=== PATIENT | female | born 1950 | race Caucasian/White ===

== ENCOUNTER 2018-01-12 09:40 | Inpatient (IN) | payer MEDICARE, MEDICAID ==
[2018-01-12] MEDS ORDERED: 0.9 % SODIUM CHLORIDE 1000ML 1,000 ML IV SCH ×2 (10:15→12:00)
[2018-01-12] MEDS ORDERED: ACETAMINOPHEN 500 MG TABLET PO ONE (10:15)
--- NOTE | 2018-01-12 10:18 | Emergency Department Record ---
History of Present Illness - General Chief complaint: Nausea, Vomiting, Diarrhea Stated complaint: DIARRHEA/FEVER Time Seen by Provider: 01/12/18 10:14 Source: Patient Mode of Arrival: Ambulatory Limitations: No limitations - History of Present Illness Initial comments: 67 yo female presents to ED for evaluation of fever, nonproductive cough, shaking all over, and decreased urine output. Patient denies abdominal pain or urinary symptoms, patient does reports loose stools that began yesterday. Patient has been taking tylenol for her fever symptoms at home. MD complaint: Nausea, Other (Fever) Onset/Timin -: Days(s) Description of Diarrhea: Other Associated Abdominal Pain: No Improves with: None Worsens with: None Context: Anticoagulant use - Related Data Allergies Allergy/AdvReac Type Severity Reaction Status Date / Time erythromycin base Allergy Severe RASH Verified 01/12/18 10:07 codeine Allergy Intermediate ALTERED Verified 01/12/18 10:07 MENTAL STATUS levofloxacin [From Levaquin] Allergy Intermediate VOMITING Verified 01/12/18 10: 07 Sulfa (Sulfonamide Allergy Intermediate RASH Verified 01/12/18 10:07 Antibiotics) Travel Screening - Travel/Exposure Within Last 30 Days Have you traveled within the last 30 days?: No - Travel/Exposure Within Last Year Have you traveled outside the [place] in the last year?: No - Additonal Travel Details Have you been exposed to anyone with a communicable illness?: No - Travel Symptoms Symptom Screening: Fever (GT 100.4), Diarrhea Review of Systems Constitutional: Reports: Chills, Fever, Malaise, Weakness Eyes: Denies: Eye discharge, Eye pain ENT: Denies: Congestion, Ear pain, Epistaxis Respiratory: Denies: Cough, Dyspnea Cardiovascular: Denies: Chest pain, Dyspnea on exertion Endocrine: Reports: Fatigue. Denies: Heat or cold intolerance Gastrointestinal: Reports: Nausea. Denies: Abdominal pain, Constipation Genitourinary: Denies: Hematuria, Incontinence Musculoskeletal: Denies: Arthralgia, Back pain, Gout, Joint swelling Skin: Denies: Bruising, Change in color Neurological: Denies: Abnormal gait, Confusion, Headache, Seizure Psychiatric: Denies: Anxiety Hematological/Lymphatic: Reports: Easy bleeding, Easy bruising. Denies: Anemia , Blood Clots Past Medical History - SOCIAL HISTORY Smoking Status: Former smoker - RESPIRATORY Hx Respiratory Disorders: Yes Hx of CPAP: Yes - CARDIOVASCULAR Hx Cardio Disorders: Yes Hx Hypertension: Yes Comment:: high cholesterol/ carotid artery - NEURO Hx Neuro Disorders: Yes Hx TIA: Yes - GI Hx GI Disorders: Yes Hx Reflux: Yes - Hx Genitourinary Disorders: Yes Hx Bladder Problem: Yes (previous incontinence) - ENDOCRINE Hx Endocrine Disorders: Yes Hx Diabetes: Yes - MUSCULOSKELETAL Hx Musculoskeletal Disorders: Yes Hx Arthritis: Yes (spine. R knee/gout) Hx Fibromyalgia: Yes Hx Gout: Yes Comment:: 3 herniated discs in neck - PSYCH Hx Psych Problems: Yes Hx Depression: Yes - HEMATOLOGY/ONCOLOGY Hx Hematology/Oncology Disorders: Yes Hx Anemia: Yes Family Medical History Any Significant Family History?: No Family Hx Comment (NOT TO BE USED IN PLACE OF ITEMS BELOW): Father w/ cerebral hemorrhage-; siblings w/ carotid problems Hx Cancer: Grandparents Hx Diabetes: Brother/Sister Hx Heart Disease: Mother, Brother/Sister Hx Seizures: Brother/Sister Physical Exam - General General Appearance: Alert, Oriented x3, Cooperative, Moderate distress Limitations: No limitations - Head Head exam: Atraumatic, Normocephalic, Normal inspection Head exam detail: negative: Abrasion, Contusion, Vargas's sign, General tenderness, Hematoma, Laceration - Eye Eye exam: Normal appearance. negative: Conjunctival injection, Periorbital swelling, Periorbital tenderness, Scleral icterus - ENT Ear exam: negative: Auricular hematoma, Auricular trauma Nasal Exam: negative: Active bleeding, Discharge, Dried blood, Foreign body Mouth exam: negative: Drooling, Laceration, Muffled voice, Tongue elevation - Neck Neck exam: Normal inspection. negative: Meningismus, Tenderness - Respiratory Respiratory exam: Normal lung sounds bilaterally. negative: Rales, Respiratory distress, Rhonchi, Stridor - Cardiovascular Cardiovascular Exam: Normal rhythm, Normal heart sounds, Tachycardia - GI/Abdominal GI/Abdominal exam: Soft. negative: Rebound, Rigid, Tenderness - Rectal Rectal exam: Deferred - exam: Deferred - Extremities Extremities exam: Normal inspection. negative: Calf tenderness, Pedal edema, Tenderness - Back Back exam: Denies: CVA tenderness (R), CVA tenderness (L) - Neurological Neurological exam: Alert, Normal gait, Oriented X3 - Psychiatric Psychiatric exam: Normal affect, Normal mood - Skin Skin exam: Normal color. negative: Abrasion Type of lesion: negative: abrasion Course Vital Signs 01/12/18 09:54 Temperature 103.1 F H Pulse Rate 105 H Respiratory 32 H Rate Blood Pressure 154/64 Pulse Ox 96 - Reevaluation(s) Reevaluation #1: 01/12/18 11:25 Labs reviewed, WBC 15.6 CO2 19 AG 25 BUN 25 Creatinine 1.3 Lactic acid 1.7. Reevaluation #2: 01/12/18 11:52 CXR: LLL Infiltrate. Patient reassessed and updated on all results, will initiate treatment with Zithromax and rocephin IV, administer Ibuprofen for increasing fever, and admit for further evaluation. Reevaluation #3: 01/12/18 12:09 Case was discussed with Randi Combs, will accept admission at this time. Medical Decision Making - Lab Data Result diagrams: 01/12/18 10:30 01/12/18 10:30 Disposition Disposition: Admit Clinical Impression: Fever 41 degrees C or over CAP (community acquired pneumonia) Qualifiers: Laterality: left Lung location: lower lobe of lung Qualified Code(s): J18.1 - Lobar pneumonia, unspecified organism Disposition: Still a Patient at [facility] Decision to Admit: Admit from ER Decision to Admit Date: 01/12/18 Decision to Admit Time: 11:53 Condition: (2) Stable Forms: Patient Portal Access Time of Disposition: 11:53 Quality - Quality Measures Quality Measures: N/A - Blood Pressure Screening Does Patient Have Any of the Following: Active Dx of HTN Blood Pressure Classification: Hypertensive Reading Systolic Measurement: 154 Diastolic Measurement: 64 Screening for High Blood Pressure: Patient Exclusion, Hx of HTN [[id number]]
[2018-01-12 10:32] LABS: BASO % 0.1 % (0-6); EOS % 0.1 % (0-6); GRAN % 76.6 % (47-80); HEMATOCRIT 32.2 % (35.0-47.0); HEMOGLOBIN 10.5 gm/dl (11.6-16.0); LYMPH % 13.9 % (16-45); MEAN CELL VOLUME 88.5 fl (81-97); MEAN CORPUSCULAR HEMOGLOBIN 28.8 pg (27-33); MEAN CORPUSCULAR HGB CONC 32.6 g/dl (32-36); MEAN PLATELET VOLUME 11.4 fl (7.4-10.4); MONO % 9.3 % (0-9); PLATELET COUNT 241 K/uL (130-400); RED BLOOD COUNT 3.64 M/uL (3.80-5.40); RED CELL DISTRIBUTION WIDTH 14.5 % (11.5-14.5); WHITE BLOOD COUNT W/O DIFF 15.6 K/uL (4.2-12.2)
[2018-01-12 10:44] LABS: BILIRUBIN,TOTAL 0.5 mg/dL (0.2-1.0); CREATININE 1.3 mg/dL (0.5-0.9)
[2018-01-12 10:45] LABS: TOTAL PROTEIN 8.3 g/dL (6.6-8.7)
[2018-01-12 10:49] LABS: ALBUMIN 4.1 g/dL (4.0-5.0)
[2018-01-12 11:13] LABS: CRYPTOSPORIDIUM PARVUM ANTIGEN NOT DETECTED (NOT DETECT); GIARDIA LAMBLIA ANTIGEN NOT DETECTED (NOT DETECT)
[2018-01-12 11:48] LABS: MOLECULAR C DIFF TOXIN SCREEN NOT DETECTED (NOT DETECT)
[2018-01-12] MEDS ORDERED: AZITHROMYCIN 500 MG in 0.9 % SODIUM CHLORIDE 250ML 250 ML IVPB ONE (11:51)
[2018-01-12] MEDS ORDERED: CEFTRIAXONE SODIUM 1 GM in 0.9 % SODIUM CHLORIDE 100ML 100 ML IVPB ONE (11:51)
[2018-01-12] MEDS ORDERED: EUCALYPTUS OIL TP SCH (13:27)
[2018-01-12] MEDS ORDERED: MENTHOL TP SCH (13:27)
[2018-01-12] MEDS ORDERED: [UNRECOGNIZED DRUG - OTHER] TP SCH (13:27)
[2018-01-12] MEDS ORDERED: ACETAMINOPHEN 500 MG TABLET PO PRN (13:27)
[2018-01-12] MEDS ORDERED: ALBUTEROL SULFATE (0.083%) 2.5 MG/3 ML NEB INH PRN (13:27)
[2018-01-12] MEDS ORDERED: CAMPHOR TP SCH (13:27)
[2018-01-12] MEDS ORDERED: FLUTICASONE PROPIONATE 50MCG NASAL 16 GM BTL PRN (13:27)
[2018-01-12] MEDS ORDERED: CICLOPIROX TP SCH (13:27)
[2018-01-12] MEDS ORDERED: UREA TP SCH (13:27)
[2018-01-12] MEDS: 0.9 % SODIUM CHLORIDE 1000ML 1,000 ML IV PRN ×2 (13:58→22:20)
[2018-01-12] MEDS: IPRATROPIUM/ALBUTEROL (0.5MG/3MG) NEB INH SCH ×3 (14:06→22:38)
[2018-01-12] MEDS: IBUPROFEN 400 MG TABLET PO ONE ×2 (16:04→17:02)
[2018-01-12] MEDS: GLIPIZIDE 5 MG TABLET PO SCH (21:19)
[2018-01-12] MEDS: AMITRIPTYLINE 25 MG TABLET PO SCH (21:19)
[2018-01-12] MEDS ORDERED: SIMVASTATIN 10MG TABLET PO SCH (22:00)
[2018-01-12] MEDS: RANITIDINE HCL 150 MG TABLET PO SCH (22:21)
[2018-01-13] MEDS: IPRATROPIUM/ALBUTEROL (0.5MG/3MG) NEB INH SCH ×5 (05:35→21:39)
[2018-01-13] MEDS: HYDROCODONE/APAP 7.5/325MG TABLET PO PRN ×3 (05:56→23:00)
[2018-01-13] MEDS: 0.9 % SODIUM CHLORIDE 1000ML 1,000 ML IV PRN (05:58)
[2018-01-13 07:16] LABS: BASO % 0.1 % (0-6); EOS % 0.1 % (0-6); GRAN % 79.9 % (47-80); HEMATOCRIT 28.5 % (35.0-47.0); HEMOGLOBIN 9.1 gm/dl (11.6-16.0); LYMPH % 11.2 % (16-45); MEAN CELL VOLUME 90.5 fl (81-97); MEAN CORPUSCULAR HGB CONC 31.9 g/dl (32-36); MEAN PLATELET VOLUME 11.3 fl (7.4-10.4); MONO % 8.7 % (0-9); PLATELET COUNT 193 K/uL (130-400); RED BLOOD COUNT 3.15 M/uL (3.80-5.40); RED CELL DISTRIBUTION WIDTH 14.6 % (11.5-14.5); WHITE BLOOD COUNT W/O DIFF 9.1 K/uL (4.2-12.2)
[2018-01-13 07:18] LABS: MEAN CORPUSCULAR HEMOGLOBIN 28.8 pg (27-33)
[2018-01-13 07:30] LABS: BLOOD UREA NITROGEN 23 mg/dL (8-23); CREATININE 0.9 mg/dL (0.5-0.9); EST GLOMERULAR FILTRATION RATE > 60 mL/min; GLUCOSE,RANDOM 172 mg/dL (74-109)
--- NOTE | 2018-01-13 08:00 | RADIOLOGY REPORT ---
EXAM: CHEST, TWO VIEWS HISTORY: FEVER, CHILLS AND DIFFICULTY IN BREATHING FOR THREE DAYS. TECHNIQUE: Upright PA and lateral views of the chest were obtained. Comparison: Two view chest radiographic examination dated 07/09/17. FINDINGS: The heart projects at the upper limits of normal in size. No pulmonary venous hypertension is seen. There is new alveolar opacity within the infrahilar left lung localizing to the lower lobe suspicious for pneumonia. The lungs and pleural spaces are otherwise clear. There are mild degenerative changes of the visualized spine. IMPRESSION: NEW ALVEOLAR OPACITIES IN THE LEFT LOWER LOBE CONSISTENT WITH PNEUMONIA. FOLLOW -UP RADIOGRAPHIC EXAMINATIONS UNTIL COMPLETE CLEARING ARE RECOMMENDED. JOB NUMBER: [id number] MTDD
[2018-01-13] MEDS ORDERED: GLIPIZIDE 5 MG TABLET PO SCH (10:00)
[2018-01-13] MEDS: GLIPIZIDE 5 MG TABLET PO SCH ×2 (10:09→21:33)
[2018-01-13] MEDS: CLOPIDOGREL 75MG TABLET PO SCH (10:09)
[2018-01-13] MEDS: ATENOLOL 50 MG TABLET PO SCH (10:09)
[2018-01-13] MEDS: CITALOPRAM 20 MG TABLET PO SCH (10:10)
[2018-01-13] MEDS: ENOXAPARIN 40 MG/0.4 ML SYR SQ SCH (10:11)
[2018-01-13] MEDS: HYDROCHLOROTHIAZIDE 12.5 MG CAPSULE PO SCH (11:15)
[2018-01-13] MEDS: ALLOPURINOL 100 MG TAB PO SCH ×2 (11:15→21:35)
[2018-01-13] MEDS: LIDOCAINE 5% PATCH TOP SCH (11:15)
[2018-01-13] MEDS: LOSARTAN POTASSIUM 25 MG TABLET PO SCH (11:15)
[2018-01-13] MEDS: TIZANIDINE HCL 4 MG TABLET PO SCH ×2 (11:15→21:32)
--- NOTE | 2018-01-13 11:50 | History & Physical ---
History of Present Illness - Date of Service Date of Service for History & Physical: 01/13/18 - History of Present Illness Admitting Diagnosis: CAP. Fever History of Present Illness: 67 year old female presented to ED for intermittent fevers over 3 days, a nonproductive cough, loose stools, shaking, decreased urine output, nausea and increased fatigue. Patient denied abdominal pain or urinary symptoms. Patient reports treating her fever with tylenol at home. Patient has a significant past medical history including cardiovascular disease , HTN, fibromyalgia, lower lumbar disc degeneration, rheumatoid arthritis, diabetes, carotid endartorectomy, TIA, gout, GERD, incontinence, CKD stage 3, depression, anxiety, and chronic anemia. ER Course: VS: temp 103.1, HR 105, RR 32, BP 154/64, pulse ox 96% RA Labs: WBC 15.6, CO2 19, BUN 25, CR 1.3, lactic acid 1.7, blood cultures drawn Stool cultures: all results negative, including c-diff Chest x-ray: LLL pneumonia Started rocephin and zithromax. Tylenol prn fever, duoneb prn. Received 2L NS bolus, NS started at 125ml/hr PCP: Leyda Bereavement Counselor [employer] Thoracic Neurosurgeon 01/13/2018: Patient alert & oriented x 4. Patient sitting on edge of bed eating breakfast. Patient continues to have visible shaking of her hands. Patient has had intermittent fevers recorded over the past 24 hours, WBC decreased to 9.1 today, down from 15.6. Hgb 9.1 (previously 11.3, has seen GI for chronic anemia), lactic acid 2.0, up from 1.7 in ED. Blood culture results show no growth. Will continue Zithromax and rocephin, tylenol prn fever, and duoneb prn. Fluids d/c due to CKD, tolerating PO diet well. Travel Screening - Travel/Exposure Within Last 30 Days Have you traveled within the last 30 days?: No - Travel/Exposure Within Last Year Have you traveled outside the [place] in the last year?: No - Additonal Travel Details Have you been exposed to anyone with a communicable illness?: No - Travel Symptoms Symptom Screening: Fever (GT 100.4) Review of Systems Constitutional: Reports: Chills, Fever, Malaise, Weakness Eyes: Denies: Eye discharge, Eye pain ENT: Denies: Congestion, Ear pain, Epistaxis Respiratory: Reports: As per HPI, Cough. Denies: Dyspnea Cardiovascular: Reports: As per HPI. Denies: Chest pain, Dyspnea on exertion Endocrine: Reports: Fatigue. Denies: Heat or cold intolerance Gastrointestinal: Reports: Diarrhea, Nausea. Denies: Abdominal pain, Constipation Genitourinary: Denies: Hematuria, Incontinence Musculoskeletal: Reports: Back pain (chronic), Neck pain (chronic). Denies: Arthralgia, Gout, Joint swelling Skin: Reports: As per HPI. Denies: Bruising, Change in color Neurological: Denies: Abnormal gait, Confusion, Headache, Seizure Psychiatric: Reports: Anxiety, Depression Hematological/Lymphatic: Reports: Easy bleeding, Easy bruising. Denies: Anemia , Blood Clots Past Medical History - SOCIAL HISTORY Smoking Status: Former smoker Alcohol Use: None Drug Use: None - RESPIRATORY Hx Respiratory Disorders: Yes Hx of CPAP: Yes - CARDIOVASCULAR Hx Cardio Disorders: Yes Hx Hypertension: Yes Comment:: high cholesterol/ carotid artery - NEURO Hx Neuro Disorders: Yes Hx TIA: Yes - GI Hx GI Disorders: Yes Hx Reflux: Yes - Hx Genitourinary Disorders: Yes Hx Bladder Problem: Yes (previous incontinence) Comment:: Stage 3 Kidney dx - ENDOCRINE Hx Endocrine Disorders: Yes Hx Diabetes: Yes Hx Thyroid Disease: No - MUSCULOSKELETAL Hx Musculoskeletal Disorders: Yes Hx Arthritis: Yes (spine. R knee/gout) Hx Fibromyalgia: Yes Hx Gout: Yes Comment:: 3 herniated discs in neck - PSYCH Hx Psych Problems: Yes Hx Anxiety: Yes Hx Depression: Yes - HEMATOLOGY/ONCOLOGY Hx Hematology/Oncology Disorders: Yes Hx Anemia: Yes Family Medical History Any Significant Family History?: Yes Family Hx Comment (NOT TO BE USED IN PLACE OF ITEMS BELOW): Father w/ cerebral hemorrhage-; siblings w/ carotid problems Hx Cancer: Grandparents Hx Diabetes: Brother/Sister Hx Heart Disease: Mother, Brother/Sister Hx HTN: Father, Mother Hx Seizures: Brother/Sister Hx Stroke: Father H&P Meds/Allergies - Allergies Allergies: Allergies Allergy/AdvReac Type Severity Reaction Status Date / Time erythromycin base Allergy Severe RASH Verified 01/12/18 10:07 codeine Allergy Intermediate ALTERED Verified 01/12/18 10:07 MENTAL STATUS levofloxacin [From Levaquin] Allergy Intermediate VOMITING Verified 01/12/18 10: 07 Sulfa (Sulfonamide Allergy Intermediate RASH Verified 01/12/18 10:07 Antibiotics) - Active Medications Active Medications: Current Medications Acetaminophen (Tylenol 500mg Tab) 1,000 mg PO Q6H PRN PRN Reason: PAIN - MILD(1-4)/FEVER Hydrocodone Bitart/Acetaminophen (Rochelle 7.5mg/325mg) 1 each PO Q6H PRN PRN Reason: Pain - General Last Admin: 01/13/18 05:56 Dose: 1 each Albuterol Sulfate () 2.5 mg INH RESP.Q2H PRN PRN Reason: DIFFICULTY IN BREATHING Last Admin: 01/12/18 16:51 Dose: 2.5 mg Albuterol/Ipratropium (Duoneb) 3 ml INH RESP.Q4H.[facility] Last Admin: 01/13/18 09:34 Dose: 3 ml Allopurinol (Zyloprim) 100 mg PO BID [facility] Last Admin: 01/13/18 11:15 Dose: 100 mg Amitriptyline HCl (Elavil) 50 mg PO QHS [facility] Last Admin: 01/12/18 21:19 Dose: 50 mg Atenolol (Tenormin) 50 mg PO DAILY [facility] Last Admin: 01/13/18 10:09 Dose: 50 mg Citalopram Hydrobromide (Celexa) 20 mg PO DAILY [facility] Last Admin: 01/13/18 10:10 Dose: 20 mg Clopidogrel Bisulfate (Plavix) 75 mg PO DAILY [facility] Last Admin: 01/13/18 10:09 Dose: 75 mg Enoxaparin Sodium (Lovenox) 40 mg SQ DAILY [facility] Last Admin: 01/13/18 10:11 Dose: 40 mg Fluticasone Propionate (Flonase) 1 spray NA BID PRN PRN Reason: NASAL CONGESTION Glipizide (Glucotrol) 10 mg PO BID [facility] Last Admin: 01/13/18 10:09 Dose: 10 mg Hydrochlorothiazide (Hctz 12.5mg) 12.5 mg PO DAILY [facility] Last Admin: 01/13/18 11:15 Dose: 12.5 mg Azithromycin 500 mg/ Sodium (Chloride) 250 mls @ 250 mls/hr IVPB Q24H [facility] Stop: 01/18/18 13:01 CEFTRIAXONE 1GM/50ML BAG (Ceftriaxone 1 Gm-D5w Bag) 1 gm in 50 mls @ 100 mls/ hr IVPB Q24H [facility] Lidocaine (Lidoderm) 1 each TOP DAILY [facility] Last Admin: 01/13/18 11:15 Dose: 1 each Losartan Potassium (Cozaar) 25 mg PO DAILY [facility] Last Admin: 01/13/18 11:15 Dose: 25 mg Miscellaneous (Remove Patch) 1 each TD QHS [facility] Ranitidine HCl (Zantac) 300 mg PO QHS [facility] Last Admin: 01/12/18 22:21 Dose: Not Given Simvastatin (Zocor) 10 mg PO QHS [facility] Last Admin: 01/12/18 21:18 Dose: 10 mg Tizanidine HCl (Tizanidine Hcl) 4 mg PO BID [facility] Last Admin: 01/13/18 11:15 Dose: 4 mg Physical Exam - Vital Signs Vital Signs: Vital Signs - Last 24 Hrs Temp Pulse Pulse Resp BP BP Pulse Ox 01/13/18 09:36 90 20 97 01/13/18 08:00 97.2 F L 91 H 18 132/58 93 L 01/13/18 05:53 98.7 F 01/13/18 05:38 86 16 92 L 01/12/18 22:41 84 16 94 L 01/12/18 22:38 88 16 01/12/18 22:34 67 18 01/12/18 22:24 98.3 F 01/12/18 21:00 78 18 01/12/18 19:16 74 16 95 01/12/18 19:14 78 16 01/12/18 18:55 100.6 F H 01/12/18 16:52 96 H 28 H 01/12/18 16:05 20 01/12/18 16:00 103.1 F H 110 H 20 125/50 94 L 01/12/18 14:12 101 H 26 H 93 L 01/12/18 14:06 106 H 24 93 L 01/12/18 13:20 98.1 F 83 18 119/44 95 01/12/18 13:02 99.4 F 75 28 H 105/41 95 - General General Appearance: Alert, Oriented x3, Cooperative, Mild distress Limitations: No limitations - Head Head exam: Atraumatic, Normocephalic, Normal inspection Head exam detail: negative: Abrasion, Contusion, Vargas's sign, General tenderness, Hematoma, Laceration - Eye Eye exam: Normal appearance. negative: Conjunctival injection, Periorbital swelling, Periorbital tenderness, Scleral icterus - ENT ENT exam: Mucous membranes moist Ear exam: negative: Auricular hematoma, Auricular trauma Nasal Exam: Normal inspection. negative: Active bleeding, Discharge, Dried blood, Foreign body Mouth exam: Normal external inspection. negative: Drooling, Laceration, Muffled voice, Tongue elevation - Neck Neck exam: Normal inspection. negative: Meningismus, Tenderness - Respiratory Respiratory exam: Chest wall tenderness (left sided), Rales, Rhonchi. negative : Respiratory distress, Stridor - Cardiovascular Cardiovascular Exam: Regular rate, Normal rhythm, Normal heart sounds Peripheral Pulses: 2+: Radial (R), Radial (L), Dorsalis Pedis (R), Dorsalis Pedis (L) - GI/Abdominal GI/Abdominal exam: Soft. negative: Rebound, Rigid, Tenderness - Rectal Rectal exam: Deferred - exam: Deferred - Extremities Extremities exam: Normal inspection. negative: Calf tenderness, Pedal edema, Tenderness - Back Back exam: Denies: CVA tenderness (R), CVA tenderness (L) - Neurological Neurological exam: Alert, Normal gait, Oriented X3 - Psychiatric Psychiatric exam: Normal affect, Normal mood - Skin Skin exam: Normal color. negative: Abrasion Type of lesion: negative: abrasion Results - Labs Result Diagrams: 01/13/18 06:24 01/13/18 06:24 Labs Last 24 Hours: Laboratory Results - last 24 hr 01/12/18 01/12/18 01/12/18 10:15 10:30 13:30 WBC RBC Hgb Hct MCV MCH MCHC RDW Plt Count MPV Gran % Lymphocytes % Monocytes % Eosinophils % Basophils % Sodium Potassium Chloride Carbon Dioxide Anion Gap BUN Creatinine Estimated GFR POC Glucose 177 H Random Glucose Lactic Acid Calcium Urine Color Cancelled Urine Appearance Cancelled Urine pH Cancelled Ur Specific [place] Cancelled Urine Protein Cancelled Urine Glucose (UA) Cancelled Urine Clinitest Cancelled Urine Ketones Cancelled Urine Blood Cancelled Urine Nitrite Cancelled Urine Bilirubin Cancelled Urine Ictotest Cancelled Prot Sulfosalicylic Acd Cancelled Urine Urobilinogen Cancelled Ur Leukocyte Esterase Cancelled C. difficile Ag & Toxin Not detected 01/13/18 01/13/18 01/13/18 06:24 06:24 08:00 WBC 9.1 RBC 3.15 L Hgb 9.1 L Hct 28.5 L MCV 90.5 MCH 28.8 MCHC 31.9 L RDW 14.6 H Plt Count 193 MPV 11.3 H Gran % 79.9 Lymphocytes % 11.2 L Monocytes % 8.7 Eosinophils % 0.1 Basophils % 0.1 Sodium 136 Potassium 3.6 Chloride 99 Carbon Dioxide 19.0 L Anion Gap 18.0 H BUN 23 Creatinine 0.9 Estimated GFR > 60 POC Glucose 176 H Random Glucose 172 H Lactic Acid 2.0 Calcium 7.7 L Urine Color Urine Appearance Urine pH Ur Specific [place] Urine Protein Urine Glucose (UA) Urine Clinitest Urine Ketones Urine Blood Urine Nitrite Urine Bilirubin Urine Ictotest Prot Sulfosalicylic Acd Urine Urobilinogen Ur Leukocyte Esterase C. difficile Ag & Toxin VTE H&P Assessment - Risk for VTE Risk for VTE: Yes Risk Level: Moderate Risk Assessment Date: 01/12/18 Risk Assessment Time: 16:00 VTE Orders Placed or Will Be Placed: Yes Plan - Inpatient Certification Inpatient Certification: Admit to inpatient care: Based on my medical assessment, after consideration of patient's risk factors (age, co-morbidities and patient presenting symptoms and acuity), I expect that this patient will remain in the hospital greater than or equal to two midnights and that the services needed warrant inpatient care because: Patient Risk Factors: [history of DM, CVD, fever, age] Estimated length of stay: [96 hours] The patient may reasonably be expected to be discharged or transferred to a hospital within 96 hours after admission to [facility]. Services needed: [IV antibiotics, monitoring of labs, breathing treatments] Post hospital care (if known): [] I certify that my determination is in accordance with my understanding of Medicare requirements for reasonable and necessary inpatient services. 01/13/18 12:03 - Detailed Diagnosis and Plan (1) CAP (community acquired pneumonia) Current Visit: Yes Status: Acute Qualifiers: Laterality: left Lung location: lower lobe of lung Qualified Code(s): J18.1 - Lobar pneumonia, unspecified organism Base Code: J18.9 - PNEUMONIA, UNSPECIFIED ORGANISM Comment: 01/13/2018: Chest x- ray demonstrates LLL pneumonia. Patient symptomatic with malaise, fatigue, febrile, and cough. WBC 15.6 and lactic acid 1.7 on admission -Continue Rocephin and Zithromax -Duoneb prn -Tylenol prn fever -Will recheck CBC and lactic acid tomorrow (2) Fever Current Visit: Yes Status: Acute Base Code: R50.9 - FEVER, UNSPECIFIED Comment: 01/13/2018: Continues to have intermittent fevers since admission, with a high of 103. -VS q4h -Tylenol prn fever -Rocephin and Zithromax -Blood cultures obtained, no growth noted (3) DVT prophylaxis Current Visit: Yes Status: Acute Base Code: [id number] - Comment: 01/13/2018: patient at moderate risk due to age, illness, and decreased mobility -Lovenox 40mg SQ (4) Full code status Current Visit: Yes Status: Acute Base Code: Z78.9 - OTHER SPECIFIED HEALTH STATUS Comment: 01/13/2018: Patient is a full code status
[2018-01-13] MEDS: CEFTRIAXONE 1GM/50ML BAG 1 GM/50 ML BAG IVPB SCH (12:19)
[2018-01-13] MEDS ORDERED: AZITHROMYCIN 500 MG in 0.9 % SODIUM CHLORIDE 250ML 250 ML IVPB SCH (13:00)
[2018-01-13] MEDS: RANITIDINE HCL 150 MG TABLET PO SCH (21:32)
[2018-01-13] MEDS: AMITRIPTYLINE 25 MG TABLET PO SCH (21:33)
[2018-01-13] MEDS: REMOVE PATCH 1 EACH MISC TD SCH (22:18)
[2018-01-14 04:37] LABS: URINE APPEARANCE CLEAR; URINE BILIRUBIN NEGATIVE (NEGATIVE); URINE BLOOD NEGATIVE (NEGATIVE); URINE COLOR YELLOW; URINE GLUCOSE (UA) NEGATIVE (NEGATIVE); URINE KETONE NEGATIVE (NEGATIVE); URINE LEUKOCYTE ESTERASE NEGATIVE (NEGATIVE); URINE NITRITE NEGATIVE (NEGATIVE)
[2018-01-14] MEDS: IPRATROPIUM/ALBUTEROL (0.5MG/3MG) NEB INH SCH ×5 (05:17→22:42)
[2018-01-14] MEDS ORDERED: FUROSEMIDE IV 20MG/2ML VIAL IVP ONE (06:38)
[2018-01-14 07:06] LABS: BASO % 0.1 % (0-6); EOS % 0.5 % (0-6); GRAN % 78.5 % (47-80); HEMATOCRIT 27.8 % (35.0-47.0); HEMOGLOBIN 8.7 gm/dl (11.6-16.0); LYMPH % 13.7 % (16-45); MEAN CELL VOLUME 89.4 fl (81-97); MEAN CORPUSCULAR HGB CONC 31.3 g/dl (32-36); MEAN PLATELET VOLUME 11.4 fl (7.4-10.4); MONO % 7.2 % (0-9); PLATELET COUNT 216 K/uL (130-400); RED BLOOD COUNT 3.11 M/uL (3.80-5.40); RED CELL DISTRIBUTION WIDTH 14.9 % (11.5-14.5); WHITE BLOOD COUNT W/O DIFF 10.4 K/uL (4.2-12.2)
[2018-01-14 07:27] LABS: MEAN CORPUSCULAR HEMOGLOBIN 27.9 pg (27-33)
[2018-01-14 07:33] LABS: BLOOD UREA NITROGEN 25 mg/dL (8-23); CREATININE 0.9 mg/dL (0.5-0.9); EST GLOMERULAR FILTRATION RATE > 60 mL/min; GLUCOSE,RANDOM 121 mg/dL (74-109)
[2018-01-14] MEDS: ENOXAPARIN 40 MG/0.4 ML SYR SQ SCH ×2 (08:39→11:08)
[2018-01-14] MEDS: GLIPIZIDE 5 MG TABLET PO SCH ×3 (08:39→21:39)
[2018-01-14] MEDS: CLOPIDOGREL 75MG TABLET PO SCH ×2 (08:40→10:15)
[2018-01-14] MEDS: HYDROCHLOROTHIAZIDE 12.5 MG CAPSULE PO SCH ×2 (08:40→10:15)
[2018-01-14] MEDS: ALLOPURINOL 100 MG TAB PO SCH ×3 (08:40→21:38)
[2018-01-14] MEDS: CITALOPRAM 20 MG TABLET PO SCH ×2 (08:41→10:14)
[2018-01-14] MEDS: LIDOCAINE 5% PATCH TOP SCH ×2 (08:41→10:15)
[2018-01-14] MEDS: ATENOLOL 50 MG TABLET PO SCH ×2 (08:41→10:15)
[2018-01-14] MEDS: LOSARTAN POTASSIUM 25 MG TABLET PO SCH ×2 (08:41→10:14)
[2018-01-14] MEDS: TIZANIDINE HCL 4 MG TABLET PO SCH ×3 (08:42→23:08)
[2018-01-14] MEDS: SIMVASTATIN 10MG TABLET PO SCH ×2 (08:45→10:15)
[2018-01-14] MEDS: HUMULIN R 100 UNIT/ML VIAL SQ SCH ×3 (08:45→18:04)
[2018-01-14] MEDS ORDERED: METHYLPREDNISOLONE PF 125MG/VIAL IVP SCH (11:00)
[2018-01-14] MEDS: CEFTRIAXONE 1GM/50ML BAG 1 GM/50 ML BAG IVPB SCH ×2 (11:20→21:59)
--- NOTE | 2018-01-14 11:30 | Physician Progress Note ---
Subjective - Date Date of Physician Progress Note: 01/14/18 - Subjective Subjective Comment: 01/14/2018: Patient alert and oriented x 4, sitting on edge of bed. Patient has increased work of breathing compared to yesterday. Oxygen saturation began dropping around 6am, 89% RA with coarse lung sounds and pedal edema noted. Patient received 20mg lasix IVP and chest x-ray ordered. Good urine output after lasix, minimal improvement in respiratory effort. Patient remains on Oxygen at 4L, improvement after duoneb nmt. Solumedrol started. Blood culture results came back positive for gram positive clusters, likely due to staph. Procalcitonin in ER was 1.12, today 2.56 indicating treatment failure. Patient will be started on vancomycin (pharmacy to dose) and rocephin BID, azithromycin stopped. Patient wears home cpap prn, encouraged to bring in at this time for extra support. Objective - Multidiciplinary Team Multidiciplinary Team: RT - Vital Signs Vital Signs: Vital Signs - Last 24 Hrs Temp Pulse Pulse Resp BP Pulse Ox 01/14/18 10:55 78 18 01/14/18 10:44 77 22 94 L 01/14/18 08:58 24 01/14/18 08:00 97.7 F 113 H 24 154/93 91 L 01/14/18 05:17 72 22 89 L 01/13/18 21:39 72 20 93 L 01/13/18 21:04 98.5 F 61 16 112/42 96 01/13/18 20:30 65 18 01/13/18 17:30 64 18 97 01/13/18 16:00 100.5 F H 65 20 110/58 97 01/13/18 13:34 60 18 100 01/13/18 12:00 97.2 F L 75 20 119/47 97 - General General Appearance: Alert, Oriented x3, Cooperative, Moderate distress Limitations: No limitations - Head Head exam: Atraumatic, Normocephalic, Normal inspection Head exam detail: negative: Abrasion, Contusion, Vargas's sign, General tenderness, Hematoma, Laceration - Eye Eye exam: Normal appearance. negative: Conjunctival injection, Periorbital swelling, Periorbital tenderness, Scleral icterus - ENT ENT exam: Mucous membranes moist Ear exam: negative: Auricular hematoma, Auricular trauma Nasal Exam: Normal inspection. negative: Active bleeding, Discharge, Dried blood, Foreign body Mouth exam: Normal external inspection. negative: Drooling, Laceration, Muffled voice, Tongue elevation - Neck Neck exam: Normal inspection. negative: Meningismus, Tenderness - Respiratory Respiratory exam: Chest wall tenderness (left sided), Rales, Rhonchi, Wheezes. negative: Respiratory distress, Stridor - Cardiovascular Cardiovascular Exam: Normal rhythm, Normal heart sounds, Tachycardia Peripheral Pulses: 2+: Radial (R), Radial (L), Dorsalis Pedis (R), Dorsalis Pedis (L) - GI/Abdominal GI/Abdominal exam: Soft. negative: Rebound, Rigid, Tenderness - Rectal Rectal exam: Deferred - exam: Deferred - Extremities Extremities exam: Normal inspection, Pedal edema (1+ bilaterally). negative: Calf tenderness, Tenderness - Back Back exam: Denies: CVA tenderness (R), CVA tenderness (L) - Neurological Neurological exam: Alert, Normal gait, Oriented X3 - Psychiatric Psychiatric exam: Anxious, Normal mood - Skin Skin exam: Normal color. negative: Abrasion Type of lesion: negative: abrasion Assessment and Plan - Assessment and Plan (1) CAP (community acquired pneumonia) Current Visit: Yes Status: Acute Qualifiers: Laterality: left Lung location: lower lobe of lung Qualified Code(s): J18.1 - Lobar pneumonia, unspecified organism Base Code: J18.9 - PNEUMONIA, UNSPECIFIED ORGANISM Comment: 01/14/2018: Chest x- ray in ED demonstrates LLL pneumonia. Patient symptomatic with malaise, fatigue , febrile, and cough. WBC 15.6 and lactic acid 1.7 on admission, WBC improved to 10.4 today. However, procalcitonin 1.12 on admission, 2.56 today. Blood cultures came back positive for gram positive cocci and clusters -Will stop azithromycin, start vanco and rocephin BID -Duoneb prn -Tylenol prn fever -Oxygen prn pulse ox >90%, home CPAP to be brought in -Repeat chest x-ray -Solumedrol 60mg IVP q8h -Will recheck CBC and procalcitonin tomorrow (2) Fever Current Visit: Yes Status: Acute Base Code: R50.9 - FEVER, UNSPECIFIED Comment: 01/14/2018: Continues to have intermittent fevers since admission, with a high of 100.3 over the past 24 hours. -VS q4h -Tylenol prn fever -Rocephin and Vanco -Blood cultures obtained, positive for gram + cocci in clusters (3) DVT prophylaxis Current Visit: Yes Status: Acute Base Code: [id number] - Comment: 01/14/2018: patient at moderate risk due to age, illness, and decreased mobility -Lovenox 40mg SQ (4) Full code status Current Visit: Yes Status: Acute Base Code: Z78.9 - OTHER SPECIFIED HEALTH STATUS Comment: 01/14/2018: Patient is a full code status Results - Labs Result Diagrams: 01/14/18 06:43 01/14/18 06:43 Labs Last 24 Hours: Laboratory Results - last 24 hr 01/12/18 01/13/18 01/13/18 21:30 04:00 11:30 WBC RBC Hgb Hct MCV MCH MCHC RDW Plt Count MPV Gran % Lymphocytes % Monocytes % Eosinophils % Basophils % Sodium Potassium Chloride Carbon Dioxide Anion Gap BUN Creatinine Estimated GFR POC Glucose 219 H 192 H Random Glucose Calcium NT-Pro-B Natriuret Pep Procalcitonin Urine Color Yellow Urine Appearance Clear Urine pH 6.0 Ur Specific [place] 1.025 Urine Protein 30 mg/dl H Urine Glucose (UA) Negative Urine Ketones Negative Urine Blood Negative Urine Nitrite Negative Urine Bilirubin Negative Urine Urobilinogen 2.0 H Ur Leukocyte Esterase Negative 01/13/18 01/13/18 01/14/18 17:00 22:21 06:08 WBC RBC Hgb Hct MCV MCH MCHC RDW Plt Count MPV Gran % Lymphocytes % Monocytes % Eosinophils % Basophils % Sodium Potassium Chloride Carbon Dioxide Anion Gap BUN Creatinine Estimated GFR POC Glucose 247 H 223 H Random Glucose Calcium NT-Pro-B Natriuret Pep 709.80 H Procalcitonin Urine Color Urine Appearance Urine pH Ur Specific [place] Urine Protein Urine Glucose (UA) Urine Ketones Urine Blood Urine Nitrite Urine Bilirubin Urine Urobilinogen Ur Leukocyte Esterase 01/14/18 01/14/18 01/14/18 06:43 06:43 07:30 WBC 10.4 RBC 3.11 L Hgb 8.7 L Hct 27.8 L MCV 89.4 MCH 27.9 MCHC 31.3 L RDW 14.9 H Plt Count 216 MPV 11.4 H Gran % 78.5 Lymphocytes % 13.7 L Monocytes % 7.2 Eosinophils % 0.5 Basophils % 0.1 Sodium 134 L Potassium 3.6 Chloride 93 L Carbon Dioxide 19.0 L Anion Gap 22.0 H BUN 25 H Creatinine 0.9 Estimated GFR > 60 POC Glucose 126 H Random Glucose 121 H Calcium 7.4 L NT-Pro-B Natriuret Pep Procalcitonin 2.56 Urine Color Urine Appearance Urine pH Ur Specific [place] Urine Protein Urine Glucose (UA) Urine Ketones Urine Blood Urine Nitrite Urine Bilirubin Urine Urobilinogen Ur Leukocyte Esterase 01/14/18 10:33 WBC RBC Hgb Hct MCV MCH MCHC RDW Plt Count MPV Gran % Lymphocytes % Monocytes % Eosinophils % Basophils % Sodium Potassium Chloride Carbon Dioxide Anion Gap BUN Creatinine Estimated GFR POC Glucose Random Glucose Calcium NT-Pro-B Natriuret Pep Procalcitonin 1.12 Urine Color Urine Appearance Urine pH Ur Specific [place] Urine Protein Urine Glucose (UA) Urine Ketones Urine Blood Urine Nitrite Urine Bilirubin Urine Urobilinogen Ur Leukocyte Esterase DVT/PE Assessment - Risk for VTE Risk for VTE: No Risk Level: Moderate Risk Assessment Date: 01/12/18 Risk Assessment Time: 16:00 VTE Orders Placed or Will Be Placed: Yes - Active Medicaitons Current Medications: Current Medications Acetaminophen (Tylenol 500mg Tab) 1,000 mg PO Q6H PRN PRN Reason: PAIN - MILD(1-4)/FEVER Hydrocodone Bitart/Acetaminophen ([place] 7.5mg/325mg) 1 each PO Q6H PRN PRN Reason: Pain - General Last Admin: 01/13/18 23:00 Dose: 1 each Albuterol Sulfate () 2.5 mg INH RESP.Q2H PRN PRN Reason: DIFFICULTY IN BREATHING Last Admin: 01/12/18 16:51 Dose: 2.5 mg Albuterol/Ipratropium (Duoneb) 3 ml [facility]H [facility]4H[facility] Last Admin: 01/14/18 10:41 Dose: 3 ml Allopurinol (Zyloprim) 100 mg PO BID [facility] Last Admin: 01/14/18 10:15 Dose: Not Given Amitriptyline HCl (Elavil) 50 mg PO QHS [facility] Last Admin: 01/13/18 21:33 Dose: 50 mg Atenolol (Tenormin) 50 mg PO DAILY [facility] Last Admin: 01/14/18 10:15 Dose: Not Given Citalopram Hydrobromide (Celexa) 20 mg PO DAILY [facility] Last Admin: 01/14/18 10:14 Dose: Not Given Clopidogrel Bisulfate (Plavix) 75 mg PO DAILY [facility] Last Admin: 01/14/18 10:15 Dose: Not Given Enoxaparin Sodium (Lovenox) 40 mg SQ DAILY [facility] Last Admin: 01/14/18 11:08 Dose: Not Given Fluticasone Propionate (Flonase) 1 spray NA BID PRN PRN Reason: NASAL CONGESTION Glipizide (Glucotrol) 10 mg PO BID [facility] Last Admin: 01/14/18 10:14 Dose: Not Given Hydrochlorothiazide (Hctz 12.5mg) 12.5 mg PO DAILY [facility] Last Admin: 01/14/18 10:15 Dose: Not Given Ceftriaxone Sodium 1 gm/ (Sodium Chloride) 100 mls @ 200 mls/hr IVPB Q12H [facility] Stop: 01/19/18 11:31 Insulin Human Regular (Humulin R) 1 unit SQ TIDAC [facility]; Protocol Last Admin: 01/14/18 08:45 Dose: 2 unit Lidocaine (Lidoderm) 1 each TOP DAILY [facility] Last Admin: 01/14/18 10:15 Dose: Not Given Losartan Potassium (Cozaar) 25 mg PO DAILY [facility] Last Admin: 01/14/18 10:14 Dose: Not Given Methylprednisolone Sodium Succinate (Solu-Medrol) 60 mg IVP Q8H [facility] Last Admin: 01/14/18 11:12 Dose: 60 mg Miscellaneous (Remove Patch) 1 each TD QHS [facility] Last Admin: 01/13/18 22:18 Dose: 1 each Ranitidine HCl (Zantac) 300 mg PO QHS [facility] Last Admin: 01/13/18 21:32 Dose: 300 mg Simvastatin (Zocor) 10 mg PO DAILY [facility] Last Admin: 01/14/18 10:15 Dose: Not Given Tizanidine HCl (Tizanidine Hcl) 4 mg PO BID [facility] Last Admin: 01/14/18 10:15 Dose: Not Given AMI Plan - Labs Result Diagrams: 01/14/18 06:43 01/14/18 06:43
[2018-01-14] MEDS: HYDROCODONE/APAP 7.5/325MG TABLET PO PRN ×2 (11:34→22:18)
[2018-01-14] MEDS ORDERED: VANCOMYCIN HCL 1,000 MG in DEXTROSE 5 % IN WATER 250 ML IVPB ONE ×2 (12:45)
--- NOTE | 2018-01-14 12:46 | RADIOLOGY REPORT ---
EXAM: CHEST, TWO VIEWS HISTORY: DIFFICULTY IN BREATHING. TECHNIQUE: Two views of the chest were performed. Comparison: 01/12/18. FINDINGS: The heart size is normal. There is bronchial wall thickening. There are bilateral alveolar infiltrates. No pleural effusion. The osseous structures are normal. IMPRESSION: BRONCHIAL WALL THICKENING WITH BILATERAL ALVEOLAR INFILTRATES. NO PLEURAL EFFUSION. JOB NUMBER: [id number] MTDD
[2018-01-14] MEDS: RANITIDINE HCL 150 MG TABLET PO SCH (21:38)
[2018-01-14] MEDS: METHYLPREDNISOLONE PF 125MG/VIAL IVP SCH (21:38)
[2018-01-14] MEDS: AMITRIPTYLINE 25 MG TABLET PO SCH (21:39)
[2018-01-14] MEDS: REMOVE PATCH 1 EACH MISC TD SCH (22:29)
[2018-01-15] MEDS: VANCOMYCIN HCL 1,000 MG in 0.9 % SODIUM CHLORIDE 250ML 250 ML IVPB SCH ×3 (02:36→13:04)
[2018-01-15] MEDS: IPRATROPIUM/ALBUTEROL (0.5MG/3MG) NEB INH SCH ×6 (02:44→22:05)
[2018-01-15] MEDS: METHYLPREDNISOLONE PF 125MG/VIAL IVP SCH (06:01)
[2018-01-15 06:30] LABS: BASO % 0.1 % (0-6); HEMATOCRIT 29.3 % (35.0-47.0); HEMOGLOBIN 9.5 gm/dl (11.6-16.0); LYMPH % 7.6 % (16-45); MEAN CELL VOLUME 87.7 fl (81-97); MEAN CORPUSCULAR HEMOGLOBIN 28.4 pg (27-33); MEAN CORPUSCULAR HGB CONC 32.4 g/dl (32-36); MEAN PLATELET VOLUME 11.9 fl (7.4-10.4); MONO % 2.4 % (0-9); PLATELET COUNT 246 K/uL (130-400); RED BLOOD COUNT 3.34 M/uL (3.80-5.40); RED CELL DISTRIBUTION WIDTH 14.5 % (11.5-14.5); WHITE BLOOD COUNT W/O DIFF 10.2 K/uL (4.2-12.2)
[2018-01-15 07:21] LABS: BLOOD UREA NITROGEN 25 mg/dL (8-23); CREATININE 0.7 mg/dL (0.5-0.9); EST GLOMERULAR FILTRATION RATE > 60 mL/min; GLUCOSE,RANDOM 309 mg/dL (74-109)
[2018-01-15] MEDS: HUMULIN R 100 UNIT/ML VIAL SQ SCH ×3 (08:19→17:32)
[2018-01-15] MEDS: ENOXAPARIN 40 MG/0.4 ML SYR SQ SCH ×2 (08:26→09:23)
[2018-01-15] MEDS: ALLOPURINOL 100 MG TAB PO SCH ×3 (08:27→22:08)
[2018-01-15] MEDS: LOSARTAN POTASSIUM 25 MG TABLET PO SCH ×2 (08:27→09:22)
[2018-01-15] MEDS: ATENOLOL 50 MG TABLET PO SCH ×2 (08:28→09:24)
[2018-01-15] MEDS: GLIPIZIDE 5 MG TABLET PO SCH ×3 (08:28→22:10)
[2018-01-15] MEDS: HYDROCODONE/APAP 7.5/325MG TABLET PO PRN ×2 (08:28→22:29)
[2018-01-15] MEDS: CITALOPRAM 20 MG TABLET PO SCH ×2 (08:29→09:21)
[2018-01-15] MEDS: CLOPIDOGREL 75MG TABLET PO SCH ×2 (08:29→09:23)
[2018-01-15] MEDS: HYDROCHLOROTHIAZIDE 12.5 MG CAPSULE PO SCH ×2 (08:29→09:22)
[2018-01-15] MEDS: SIMVASTATIN 10MG TABLET PO SCH ×2 (08:29→09:24)
[2018-01-15] MEDS: TIZANIDINE HCL 4 MG TABLET PO SCH ×2 (09:24→22:09)
[2018-01-15] MEDS: LIDOCAINE 5% PATCH TOP SCH (09:25)
[2018-01-15] MEDS: CEFTRIAXONE 1GM/50ML BAG 1 GM/50 ML BAG IVPB SCH ×2 (09:54→22:14)
--- NOTE | 2018-01-15 11:27 | Physician Progress Note ---
Subjective - Date Date of Physician Progress Note: 01/15/18 - Subjective Subjective Comment: 01/15/2018: Patient alert and oriented x 4, sitting on edge of bed. Patient has significant improvement in work of breathing compared to yesterday. Patient now on room air, moderate dyspnea with exertion noted. Patient used her CPAP throughout the night. Patient receiving duoneb q4h prn, solumedrol qd, vanco and rocephin. Blood culture results came back positive for gram positive clusters, likely due to staph. Procalcitonin yesterday 2.56, today 1.58. Has remained afebrile for the past 24 hours. Patient will continue vancomycin ( pharmacy to dose) and rocephin BID. Has continued chronic back pain, treated with [place] prn. Objective - Multidiciplinary Team Multidiciplinary Team: RT - Vital Signs Vital Signs: Vital Signs - Last 24 Hrs Temp Pulse Pulse Resp BP Pulse Ox 01/15/18 10:20 77 18 95 01/15/18 10:18 18 01/15/18 09:38 74 18 95 01/15/18 09:37 18 01/15/18 09:00 20 01/15/18 07:58 97.2 F L 94 H 18 142/67 94 L 01/15/18 06:22 72 20 01/15/18 02:44 68 20 93 L 01/14/18 22:00 98.0 F 67 22 132/63 97 01/14/18 21:55 97 01/14/18 21:00 67 22 01/14/18 20:34 68 20 01/14/18 16:00 97 F L 56 L 20 146/63 97 01/14/18 14:34 62 22 01/14/18 14:21 61 22 94 L 01/14/18 12:00 97.6 F 66 18 101/49 95 - General General Appearance: Alert, Oriented x3, Cooperative, Mild distress Limitations: No limitations - Head Head exam: Atraumatic, Normocephalic, Normal inspection Head exam detail: negative: Abrasion, Contusion, Vargas's sign, General tenderness, Hematoma, Laceration - Eye Eye exam: Normal appearance. negative: Conjunctival injection, Periorbital swelling, Periorbital tenderness, Scleral icterus - ENT ENT exam: Mucous membranes moist Ear exam: negative: Auricular hematoma, Auricular trauma Nasal Exam: Normal inspection. negative: Active bleeding, Discharge, Dried blood, Foreign body Mouth exam: Normal external inspection. negative: Drooling, Laceration, Muffled voice, Tongue elevation - Neck Neck exam: Normal inspection. negative: Meningismus, Tenderness - Respiratory Respiratory exam: Rales, Rhonchi, Wheezes. negative: Respiratory distress, Stridor - Cardiovascular Cardiovascular Exam: Normal rhythm, Normal heart sounds, Tachycardia Peripheral Pulses: 2+: Radial (R), Radial (L), Dorsalis Pedis (R), Dorsalis Pedis (L) - GI/Abdominal GI/Abdominal exam: Soft. negative: Rebound, Rigid, Tenderness - Rectal Rectal exam: Deferred - exam: Deferred - Extremities Extremities exam: Normal inspection. negative: Calf tenderness, Pedal edema, Tenderness - Back Back exam: Denies: CVA tenderness (R), CVA tenderness (L) - Neurological Neurological exam: Alert, Normal gait, Oriented X3 - Psychiatric Psychiatric exam: Anxious, Normal mood - Skin Skin exam: Normal color. negative: Abrasion Type of lesion: negative: abrasion Assessment and Plan - Assessment and Plan (1) CAP (community acquired pneumonia) Current Visit: Yes Status: Acute Qualifiers: Laterality: left Lung location: lower lobe of lung Qualified Code(s): J18.1 - Lobar pneumonia, unspecified organism Base Code: J18.9 - PNEUMONIA, UNSPECIFIED ORGANISM Comment: 01/15/2018: Chest x- ray in ED demonstrates LLL pneumonia. Patient symptomatic with malaise, fatigue , febrile, and cough. WBC 15.6 and lactic acid 1.7 on admission, WBC improved to 10.2 today, procalcitonin 1.58, down from 2.56 yesterday. Blood cultures came back positive for gram positive cocci and clusters -Will stop azithromycin, start vanco and rocephin BID -Duoneb prn -Tylenol prn fever -Oxygen prn pulse ox >90%, home CPAP to be brought in. Room air at this time -Repeat chest x-ray demonstrated bilateral infiltrates -Solumedrol 60mg IVP qd -Will recheck CBC and procalcitonin tomorrow (2) Fever Current Visit: Yes Status: Acute Base Code: R50.9 - FEVER, UNSPECIFIED Comment: 01/15/2018: Patient has been afebrile for the past 24 hours -VS q4h -Tylenol prn fever -Rocephin and Vanco -Blood cultures obtained, positive for gram + cocci in clusters (3) DVT prophylaxis Current Visit: Yes Status: Acute Base Code: [id number] - Comment: 01/15/2018: patient at moderate risk due to age, illness, and decreased mobility -Lovenox 40mg SQ (4) Full code status Current Visit: Yes Status: Acute Base Code: Z78.9 - OTHER SPECIFIED HEALTH STATUS Comment: 01/15/2018: Patient is a full code status Results - Labs Result Diagrams: 01/15/18 06:10 01/15/18 06:10 Labs Last 24 Hours: Laboratory Results - last 24 hr 01/14/18 01/14/18 01/14/18 11:30 17:00 22:10 WBC RBC Hgb Hct MCV MCH MCHC RDW Plt Count MPV Neutrophils % Band Neutrophils % Lymphocytes % Monocytes % Eosinophils % Basophils % Lymphocytes Monocytes Carbon Dioxide BUN Creatinine Estimated GFR POC Glucose 151 H 246 H 262 H Random Glucose Calcium Procalcitonin Vancomycin Trough 01/15/18 01/15/18 01/15/18 06:10 06:10 07:57 WBC 10.2 RBC 3.34 L Hgb 9.5 L Hct 29.3 L MCV 87.7 MCH 28.4 MCHC 32.4 RDW 14.5 Plt Count 246 MPV 11.9 H Neutrophils % 81.0 H Band Neutrophils % 5.0 Lymphocytes % 7.6 L Monocytes % 2.4 Eosinophils % 0.0 Basophils % 0.1 Lymphocytes 13.0 L Monocytes 1.0 Carbon Dioxide 18.0 L BUN 25 H Creatinine 0.7 Estimated GFR > 60 POC Glucose 297 H Random Glucose 309 H Calcium 8.2 L Procalcitonin 1.58 Vancomycin Trough 01/17/18 12:15 WBC RBC Hgb Hct MCV MCH MCHC RDW Plt Count MPV Neutrophils % Band Neutrophils % Lymphocytes % Monocytes % Eosinophils % Basophils % Lymphocytes Monocytes Carbon Dioxide BUN Creatinine Estimated GFR POC Glucose Random Glucose Calcium Procalcitonin Vancomycin Trough Cancelled DVT/PE Assessment - Risk for VTE Risk for VTE: No Risk Level: Moderate Risk Assessment Date: 01/12/18 Risk Assessment Time: 16:00 VTE Orders Placed or Will Be Placed: Yes - Active Medicaitons Current Medications: Current Medications Acetaminophen (Tylenol 500mg Tab) 1,000 mg PO Q6H PRN PRN Reason: PAIN - MILD(1-4)/FEVER Hydrocodone Bitart/Acetaminophen ([place] 7.5mg/325mg) 1 each PO Q6H PRN PRN Reason: Pain - General Last Admin: 01/15/18 08:28 Dose: 1 each Albuterol Sulfate () 2.5 mg INH RESP.Q2H PRN PRN Reason: DIFFICULTY IN BREATHING Last Admin: 01/12/18 16:51 Dose: 2.5 mg Albuterol/Ipratropium (Duoneb) 3 ml INH RESP.Q4H.[facility] Last Admin: 01/15/18 10:17 Dose: 3 ml Allopurinol (Zyloprim) 100 mg PO BID [facility] Last Admin: 01/15/18 09:24 Dose: Not Given Amitriptyline HCl (Elavil) 50 mg PO QHS [facility] Last Admin: 01/14/18 21:39 Dose: 50 mg Atenolol (Tenormin) 50 mg PO DAILY [facility] Last Admin: 01/15/18 09:24 Dose: Not Given Citalopram Hydrobromide (Celexa) 20 mg PO DAILY [facility] Last Admin: 01/15/18 09:21 Dose: Not Given Clopidogrel Bisulfate (Plavix) 75 mg PO DAILY [facility] Last Admin: 01/15/18 09:23 Dose: Not Given Enoxaparin Sodium (Lovenox) 40 mg SQ DAILY [facility] Last Admin: 01/15/18 09:23 Dose: Not Given Fluticasone Propionate (Flonase) 1 spray NA BID PRN PRN Reason: NASAL CONGESTION Glipizide (Glucotrol) 10 mg PO BID [facility] Last Admin: 01/15/18 09:22 Dose: Not Given Hydrochlorothiazide (Hctz 12.5mg) 12.5 mg PO DAILY [facility] Last Admin: 01/15/18 09:22 Dose: Not Given CEFTRIAXONE 1GM/50ML BAG (Ceftriaxone 1 Gm-D5w Bag) 1 gm in 50 mls @ 100 mls/ hr IVPB Q12H [facility] Last Infusion: 01/15/18 10:25 Dose: Infused Vancomycin HCl 1,000 mg/ (Sodium Chloride) 250 mls @ 250 mls/hr IVPB Q12H [facility] Stop: 01/20/18 00:46 Last Infusion: 01/15/18 04:16 Dose: Infused Insulin Human Regular (Humulin R) 1 unit SQ TIDAC [facility]; Protocol Last Admin: 01/15/18 08:19 Dose: 8 unit Lidocaine (Lidoderm) 1 each TOP DAILY [facility] Last Admin: 01/15/18 09:25 Dose: Not Given Losartan Potassium (Cozaar) 25 mg PO DAILY [facility] Last Admin: 01/15/18 09:22 Dose: Not Given Methylprednisolone Sodium Succinate (Solu-Medrol) 60 mg IVP DAILY [facility] Miscellaneous (Remove Patch) 1 each TD QHS [facility] Last Admin: 01/14/18 22:29 Dose: 1 each Ranitidine HCl (Zantac) 300 mg PO QHS [facility] Last Admin: 01/14/18 21:38 Dose: 300 mg Simvastatin (Zocor) 10 mg PO DAILY [facility] Last Admin: 01/15/18 09:24 Dose: Not Given Tizanidine HCl (Tizanidine Hcl) 2 mg PO BID [facility] Last Admin: 01/15/18 09:24 Dose: 2 mg AMI Plan - Labs Result Diagrams: 01/15/18 06:10 01/15/18 06:10
[2018-01-15] MEDS: RANITIDINE HCL 150 MG TABLET PO SCH (22:09)
[2018-01-15] MEDS: AMITRIPTYLINE 25 MG TABLET PO SCH (22:10)
[2018-01-15] MEDS: REMOVE PATCH 1 EACH MISC TD SCH (22:50)
[2018-01-16] MEDS: VANCOMYCIN HCL 1,000 MG in 0.9 % SODIUM CHLORIDE 250ML 250 ML IVPB SCH ×2 (00:28→13:27)
[2018-01-16] MEDS: IPRATROPIUM/ALBUTEROL (0.5MG/3MG) NEB INH SCH ×5 (06:16→21:59)
[2018-01-16 06:29] LABS: HEMATOCRIT 26.9 % (35.0-47.0); HEMOGLOBIN 8.6 gm/dl (11.6-16.0); MEAN CELL VOLUME 89.1 fl (81-97); MEAN PLATELET VOLUME 11.1 fl (7.4-10.4); PLATELET COUNT 257 K/uL (130-400); RED BLOOD COUNT 3.02 M/uL (3.80-5.40); RED CELL DISTRIBUTION WIDTH 14.4 % (11.5-14.5); WHITE BLOOD COUNT W/O DIFF 12.1 K/uL (4.2-12.2)
[2018-01-16 06:40] LABS: MEAN CORPUSCULAR HEMOGLOBIN 28.4 pg (27-33)
[2018-01-16 07:21] LABS: BLOOD UREA NITROGEN 30 mg/dL (8-23); CREATININE 0.7 mg/dL (0.5-0.9); EST GLOMERULAR FILTRATION RATE > 60 mL/min; GLUCOSE,RANDOM 214 mg/dL (74-109)
[2018-01-16 07:33] LABS: PLATELET ESTIMATE NORMAL (NORMAL)
[2018-01-16] MEDS: HUMULIN R 100 UNIT/ML VIAL SQ SCH ×3 (08:25→18:12)
[2018-01-16] MEDS: LIDOCAINE 5% PATCH TOP SCH (09:18)
[2018-01-16] MEDS: ENOXAPARIN 40 MG/0.4 ML SYR SQ SCH (09:19)
[2018-01-16] MEDS: CLOPIDOGREL 75MG TABLET PO SCH (09:20)
[2018-01-16] MEDS: GLIPIZIDE 5 MG TABLET PO SCH ×2 (09:22→21:24)
[2018-01-16] MEDS: TIZANIDINE HCL 4 MG TABLET PO SCH ×2 (09:22→21:24)
[2018-01-16] MEDS: ALLOPURINOL 100 MG TAB PO SCH ×2 (09:22→21:23)
[2018-01-16] MEDS: HYDROCHLOROTHIAZIDE 12.5 MG CAPSULE PO SCH (09:23)
[2018-01-16] MEDS: ATENOLOL 50 MG TABLET PO SCH (09:23)
[2018-01-16] MEDS: CITALOPRAM 20 MG TABLET PO SCH (09:23)
[2018-01-16] MEDS: LOSARTAN POTASSIUM 25 MG TABLET PO SCH (09:23)
[2018-01-16] MEDS: SIMVASTATIN 10MG TABLET PO SCH (09:24)
[2018-01-16] MEDS: CEFTRIAXONE 1GM/50ML BAG 1 GM/50 ML BAG IVPB SCH ×2 (09:26→21:30)
[2018-01-16] MEDS: METHYLPREDNISOLONE PF 125MG/VIAL IVP SCH (09:30)
--- NOTE | 2018-01-16 10:12 | Physician Progress Note ---
Subjective - Date Date of Physician Progress Note: 01/16/18 - Subjective Subjective Comment: 01/16/2018: Patient alert and oriented x 4, sitting on edge of bed. Patient remains on room air, moderate dyspnea with exertion noted. Patient used her CPAP throughout the night. Patient receiving duoneb q4h prn, solumedrol qd, vanco and rocephin. Blood culture results came back positive for gram positive clusters, likely due to staph. Procalcitonin yesterday 1.58, today 1.38, continue to have >10% decrease indicating appropriate abx therapy. WBC increased to 12.1 today, up from 10.2 yesterday, likely due to steroid use. Has remained afebrile for the past 24 hours. Patient will continue vancomycin ( pharmacy to dose) and rocephin BID. Hemoglobin dropped to 8.6 today, down from 9.1 yesterday, likely due to repeated blood draws. Has continued chronic back pain, treated with Fertile prn. If patient remains clinically stable and continued decreased in procalcitonin tomorrow, plan to dc home. Objective - Multidiciplinary Team Multidiciplinary Team: RT - Vital Signs Vital Signs: Vital Signs - Last 24 Hrs Temp Pulse Pulse Resp BP Pulse Ox 01/16/18 09:53 60 18 98 01/16/18 08:00 97.2 F L 52 L 16 142/43 96 01/16/18 06:16 64 20 90 L 01/15/18 22:02 106 H 24 95 01/15/18 22:01 100 H 24 95 01/15/18 21:00 57 L 20 01/15/18 20:00 97.6 F 61 18 139/85 93 L 01/15/18 18:11 20 01/15/18 16:00 97.7 F 57 L 16 145/66 96 01/15/18 14:08 58 L 18 96 01/15/18 14:07 18 01/15/18 11:48 97.3 F L 63 18 120/64 94 L 01/15/18 10:50 18 01/15/18 10:20 77 18 95 01/15/18 10:18 18 - General General Appearance: Alert, Oriented x3, Cooperative, No acute distress Limitations: No limitations - Head Head exam: Atraumatic, Normocephalic, Normal inspection Head exam detail: negative: Abrasion, Contusion, Vargas's sign, General tenderness, Hematoma, Laceration - Eye Eye exam: Normal appearance. negative: Conjunctival injection, Periorbital swelling, Periorbital tenderness, Scleral icterus - ENT ENT exam: Mucous membranes moist Ear exam: negative: Auricular hematoma, Auricular trauma Nasal Exam: Normal inspection. negative: Active bleeding, Discharge, Dried blood, Foreign body Mouth exam: Normal external inspection. negative: Drooling, Laceration, Muffled voice, Tongue elevation - Neck Neck exam: Normal inspection. negative: Meningismus, Tenderness - Respiratory Respiratory exam: Rales, Rhonchi, Wheezes. negative: Respiratory distress, Stridor - Cardiovascular Cardiovascular Exam: Regular rate, Normal rhythm, Normal heart sounds Peripheral Pulses: 2+: Radial (R), Radial (L), Dorsalis Pedis (R), Dorsalis Pedis (L) - GI/Abdominal GI/Abdominal exam: Soft. negative: Rebound, Rigid, Tenderness - Rectal Rectal exam: Deferred - exam: Deferred - Extremities Extremities exam: Normal inspection. negative: Calf tenderness, Pedal edema, Tenderness - Back Back exam: Denies: CVA tenderness (R), CVA tenderness (L) - Neurological Neurological exam: Alert, Normal gait, Oriented X3 - Psychiatric Psychiatric exam: Anxious, Normal mood - Skin Skin exam: Normal color. negative: Abrasion Type of lesion: negative: abrasion Assessment and Plan - Assessment and Plan (1) CAP (community acquired pneumonia) Current Visit: Yes Status: Acute Qualifiers: Laterality: left Lung location: lower lobe of lung Qualified Code(s): J18.1 - Lobar pneumonia, unspecified organism Base Code: J18.9 - PNEUMONIA, UNSPECIFIED ORGANISM Comment: 01/16/2018: Chest x- ray in ED demonstrates LLL pneumonia. Repeat x-ray on 01/14/18 indicates bilateral infiltrates. Patient symptomatic with malaise, fatigue, febrile, and cough. WBC 15.6 and lactic acid 1.7 on admission. Blood cultures came back positive for gram positive cocci and clusters -Will stop azithromycin, start vanco and rocephin BID, procalcitonin continues to decrease -Duoneb prn -Tylenol prn fever -Oxygen prn pulse ox >90%, home CPAP to be brought in. Room air at this time -Darindrol 60mg IVP qd -Will recheck CBC and procalcitonin tomorrow (2) Fever Current Visit: Yes Status: Acute Base Code: R50.9 - FEVER, UNSPECIFIED Comment: 01/16/2018: Patient has been afebrile for the past 48 hours -VS q4h -Tylenol prn fever -Rocephin and Vanco -Blood cultures obtained, positive for gram + cocci in clusters (3) DVT prophylaxis Current Visit: Yes Status: Acute Base Code: [id number] - Comment: 01/16/2018: patient at moderate risk due to age, illness, and decreased mobility -Lovenox 40mg SQ (4) Full code status Current Visit: Yes Status: Acute Base Code: Z78.9 - OTHER SPECIFIED HEALTH STATUS Comment: 01/16/2018: Patient is a full code status Results - Labs Result Diagrams: 01/16/18 06:10 01/16/18 06:10 Labs Last 24 Hours: Laboratory Results - last 24 hr 01/15/18 01/15/18 01/15/18 06:10 11:48 17:04 WBC RBC Hgb Hct MCV MCH MCHC RDW Plt Count MPV Neutrophils % Band Neutrophils % Eosinophils % Basophils % Lymphocytes Monocytes Platelet Estimate Sodium 130 L Potassium 3.7 Chloride 94 L Carbon Dioxide Anion Gap 18.0 H BUN Creatinine Estimated GFR POC Glucose 333 H 206 H Random Glucose Calcium Procalcitonin 01/15/18 01/16/18 01/16/18 22:20 06:10 06:10 WBC 12.1 RBC 3.02 L Hgb 8.6 L Hct 26.9 L MCV 89.1 MCH 28.4 MCHC 32.0 RDW 14.4 Plt Count 257 MPV 11.1 H Neutrophils % 77.0 Band Neutrophils % 11.0 H Eosinophils % Not Reportable Basophils % Not Reportable Lymphocytes 8.0 L Monocytes 3.0 Platelet Estimate Normal Sodium 136 Potassium 3.9 Chloride 98 Carbon Dioxide 26.0 Anion Gap 12.0 BUN 30 H Creatinine 0.7 Estimated GFR > 60 POC Glucose 185 H Random Glucose 214 H Calcium 9.0 Procalcitonin 1.38 01/16/18 07:30 WBC RBC Hgb Hct MCV MCH MCHC RDW Plt Count MPV Neutrophils % Band Neutrophils % Eosinophils % Basophils % Lymphocytes Monocytes Platelet Estimate Sodium Potassium Chloride Carbon Dioxide Anion Gap BUN Creatinine Estimated GFR POC Glucose 210 H Random Glucose Calcium Procalcitonin DVT/PE Assessment - Risk for VTE Risk for VTE: No Risk Level: Moderate Risk Assessment Date: 01/12/18 Risk Assessment Time: 16:00 VTE Orders Placed or Will Be Placed: Yes - Active Medicaitons Current Medications: Current Medications Acetaminophen (Tylenol 500mg Tab) 1,000 mg PO Q6H PRN PRN Reason: PAIN - MILD(1-4)/FEVER Hydrocodone Bitart/Acetaminophen (Fertile 7.5mg/325mg) 1 each PO Q6H PRN PRN Reason: Pain - General Last Admin: 01/15/18 22:29 Dose: 1 each Albuterol Sulfate () 2.5 mg INH RESP.Q2H PRN PRN Reason: DIFFICULTY IN BREATHING Last Admin: 01/12/18 16:51 Dose: 2.5 mg Albuterol/Ipratropium (Duoneb) 3 ml INH RESP.Q4H.[facility] Last Admin: 01/16/18 09:52 Dose: 3 ml Allopurinol (Zyloprim) 100 mg PO BID [facility] Last Admin: 01/16/18 09:22 Dose: 100 mg Amitriptyline HCl (Elavil) 50 mg PO QHS [facility] Last Admin: 01/15/18 22:10 Dose: 50 mg Atenolol (Tenormin) 50 mg PO DAILY [facility] Last Admin: 01/16/18 09:23 Dose: 50 mg Citalopram Hydrobromide (Celexa) 20 mg PO DAILY [facility] Last Admin: 01/16/18 09:23 Dose: 20 mg Clopidogrel Bisulfate (Plavix) 75 mg PO DAILY [facility] Last Admin: 01/16/18 09:20 Dose: 75 mg Enoxaparin Sodium (Lovenox) 40 mg SQ DAILY [facility] Last Admin: 01/16/18 09:19 Dose: 40 mg Fluticasone Propionate (Flonase) 1 spray NA BID PRN PRN Reason: NASAL CONGESTION Glipizide (Glucotrol) 10 mg PO BID [facility] Last Admin: 01/16/18 09:22 Dose: 10 mg Hydrochlorothiazide (Hctz 12.5mg) 12.5 mg PO DAILY [facility] Last Admin: 01/16/18 09:23 Dose: 12.5 mg CEFTRIAXONE 1GM/50ML BAG (Ceftriaxone 1 Gm-D5w Bag) 1 gm in 50 mls @ 100 mls/ hr IVPB Q12H [facility] Last Admin: 01/16/18 09:26 Dose: 100 mls/hr Vancomycin HCl 1,000 mg/ (Sodium Chloride) 250 mls @ 250 mls/hr IVPB Q12H [facility] Stop: 01/20/18 00:46 Last Infusion: 01/16/18 01:51 Dose: Infused Insulin Human Regular (Humulin R) 1 unit SQ TIDAC [facility]; Protocol Last Admin: 01/16/18 08:25 Dose: 6 unit Lidocaine (Lidoderm) 1 each TOP DAILY [facility] Last Admin: 01/16/18 09:18 Dose: 1 each Losartan Potassium (Cozaar) 25 mg PO DAILY [facility] Last Admin: 01/16/18 09:23 Dose: 25 mg Methylprednisolone Sodium Succinate (Solu-Medrol) 60 mg IVP DAILY [facility] Miscellaneous (Remove Patch) 1 each TD QHS [facility] Last Admin: 01/15/18 22:50 Dose: Not Given Ranitidine HCl (Zantac) 300 mg PO QHS [facility] Last Admin: 01/15/18 22:09 Dose: 300 mg Simvastatin (Zocor) 10 mg PO DAILY [facility] Last Admin: 01/16/18 09:24 Dose: 10 mg Tizanidine HCl (Tizanidine Hcl) 2 mg PO BID [facility] Last Admin: 01/16/18 09:22 Dose: 2 mg AMI Plan - Labs Result Diagrams: 01/16/18 06:10 01/16/18 06:10
[2018-01-16] MEDS: FERROUS SULFATE 325 MG TAB PO SCH (11:53)
[2018-01-16] MEDS: HYDROCODONE/APAP 7.5/325MG TABLET PO PRN ×2 (13:28→21:46)
[2018-01-16] MEDS: AMITRIPTYLINE 25 MG TABLET PO SCH (21:23)
[2018-01-16] MEDS: RANITIDINE HCL 150 MG TABLET PO SCH (21:23)
[2018-01-16] MEDS: REMOVE PATCH 1 EACH MISC TD SCH (22:44)
[2018-01-17] MEDS: VANCOMYCIN HCL 1,000 MG in 0.9 % SODIUM CHLORIDE 250ML 250 ML IVPB SCH (00:29)
[2018-01-17] MEDS: IPRATROPIUM/ALBUTEROL (0.5MG/3MG) NEB INH SCH ×2 (05:53→09:47)
[2018-01-17 06:34] LABS: HEMATOCRIT 28.4 % (35.0-47.0); MEAN CELL VOLUME 89.6 fl (81-97); MEAN CORPUSCULAR HGB CONC 31.7 g/dl (32-36); MEAN PLATELET VOLUME 11.1 fl (7.4-10.4); PLATELET COUNT 337 K/uL (130-400); RED BLOOD COUNT 3.17 M/uL (3.80-5.40); RED CELL DISTRIBUTION WIDTH 14.7 % (11.5-14.5); WHITE BLOOD COUNT W/O DIFF 13.8 K/uL (4.2-12.2)
[2018-01-17 06:53] LABS: MEAN CORPUSCULAR HEMOGLOBIN 28.3 pg (27-33)
[2018-01-17 07:12] LABS: HYPOCHROMIA 1+; PLATELET ESTIMATE NORMAL (NORMAL)
[2018-01-17 07:28] LABS: BLOOD UREA NITROGEN 23 mg/dL (8-23); CREATININE 0.7 mg/dL (0.5-0.9); EST GLOMERULAR FILTRATION RATE > 60 mL/min; GLUCOSE,RANDOM 137 mg/dL (74-109)
[2018-01-17] MEDS: HUMULIN R 100 UNIT/ML VIAL SQ SCH (08:02)
[2018-01-17] MEDS ORDERED: POTASSIUM CHLORIDE 20 MEQ TABLET PO ONE (09:13)
[2018-01-17] MEDS: CEFTRIAXONE 1GM/50ML BAG 1 GM/50 ML BAG IVPB SCH (09:25)
[2018-01-17] MEDS: LOSARTAN POTASSIUM 25 MG TABLET PO SCH (09:26)
[2018-01-17] MEDS: CITALOPRAM 20 MG TABLET PO SCH (09:26)
[2018-01-17] MEDS: GLIPIZIDE 5 MG TABLET PO SCH (09:28)
[2018-01-17] MEDS: ENOXAPARIN 40 MG/0.4 ML SYR SQ SCH ×2 (09:29→09:56)
[2018-01-17] MEDS: HYDROCHLOROTHIAZIDE 12.5 MG CAPSULE PO SCH (09:29)
[2018-01-17] MEDS: LIDOCAINE 5% PATCH TOP SCH (09:29)
[2018-01-17] MEDS: FERROUS SULFATE 325 MG TAB PO SCH (09:29)
[2018-01-17] MEDS: TIZANIDINE HCL 4 MG TABLET PO SCH (09:30)
[2018-01-17] MEDS: ATENOLOL 50 MG TABLET PO SCH (09:30)
[2018-01-17] MEDS: CLOPIDOGREL 75MG TABLET PO SCH (09:30)
[2018-01-17] MEDS: METHYLPREDNISOLONE PF 125MG/VIAL IVP SCH (09:30)
[2018-01-17] MEDS: SIMVASTATIN 10MG TABLET PO SCH (09:31)
[2018-01-17] MEDS: ALLOPURINOL 100 MG TAB PO SCH (09:31)
--- NOTE | 2018-01-17 10:16 | Discharge Summary ---
Providers Discharge Summary Date: 01/17/18 Date of admission: 01/12/18 13:04 Expected Date of Discharge: 01/17/18 Attending physician: REUBEN GIRON Primary care physician: JOHN LOVETT D.O. Physical Exam - Vital Signs Vital Signs: Vital Signs - Last 24 Hrs Temp Pulse Pulse Resp BP Pulse Ox 01/17/18 09:48 61 18 96 01/17/18 07:46 97.9 F 64 18 156/67 91 L 01/17/18 06:05 93 L 01/17/18 05:53 72 22 82 L 01/16/18 21:59 56 L 20 92 L 01/16/18 21:00 56 L 20 01/16/18 20:00 97.7 F 64 18 193/89 94 L 01/16/18 18:14 61 16 96 01/16/18 16:00 97.3 F L 53 L 18 171/68 94 L 01/16/18 13:34 51 L 16 95 01/16/18 11:52 96.8 F L 58 L 16 120/48 94 L - General General Appearance: Alert, Oriented x3, Cooperative, No acute distress Limitations: No limitations - Head Head exam: Atraumatic, Normocephalic, Normal inspection Head exam detail: negative: Abrasion, Contusion, Vargas's sign, General tenderness, Hematoma, Laceration - Eye Eye exam: Normal appearance. negative: Conjunctival injection, Periorbital swelling, Periorbital tenderness, Scleral icterus - ENT ENT exam: Mucous membranes moist Ear exam: negative: Auricular hematoma, Auricular trauma Nasal Exam: Normal inspection. negative: Active bleeding, Discharge, Dried blood, Foreign body Mouth exam: Normal external inspection. negative: Drooling, Laceration, Muffled voice, Tongue elevation - Neck Neck exam: Normal inspection. negative: Meningismus, Tenderness - Respiratory Respiratory exam: Wheezes (expiratory wheezes). negative: Respiratory distress , Stridor - Cardiovascular Cardiovascular Exam: Regular rate, Normal rhythm, Normal heart sounds Peripheral Pulses: 2+: Radial (R), Radial (L), Dorsalis Pedis (R), Dorsalis Pedis (L) - GI/Abdominal GI/Abdominal exam: Soft. negative: Rebound, Rigid, Tenderness - Rectal Rectal exam: Deferred - exam: Deferred - Extremities Extremities exam: Normal inspection. negative: Calf tenderness, Pedal edema, Tenderness - Back Back exam: Denies: CVA tenderness (R), CVA tenderness (L) - Neurological Neurological exam: Alert, Normal gait, Oriented X3 - Psychiatric Psychiatric exam: Anxious, Normal mood - Skin Skin exam: Normal color. negative: Abrasion Type of lesion: negative: abrasion Hospitalization - Hospitalization Admission Diagnosis: CAP. Fever - Problem List/Discharge Diagnosis (1) CAP (community acquired pneumonia) Current Visit: Yes Status: Acute Discharge Diagnosis: Laterality: left Lung location: lower lobe of lung Qualified Code(s): J18.1 - Lobar pneumonia, unspecified organism Base Code: J18.9 - PNEUMONIA, UNSPECIFIED ORGANISM Comment: 01/17/2018: Chest x- ray in ED demonstrates LLL pneumonia. Repeat x-ray on 01/14/18 indicates bilateral infiltrates. Patient symptomatic with malaise, fatigue, febrile, and cough on admission. WBC 15.6 and lactic acid 1.7 on admission. Blood cultures came back positive for gram positive cocci and clusters -Will stop azithromycin, start vanco and rocephin BID, procalcitonin continues to decrease, 0.796 today -Duoneb prn -Tylenol prn fever -Oxygen prn pulse ox >90%, home CPAP to be brought in. Room air at this time -Solumedrol 60mg IVP qd -Will dc home on prednisone taper due to underlying asthma, cefdinir x 5 days, and duoneb (2) Fever Current Visit: Yes Status: Acute Base Code: R50.9 - FEVER, UNSPECIFIED Comment: 01/17/2018: Patient has been afebrile for the past 48 hours -VS q4h -Tylenol prn fever -Rocephin and Vanco -Blood cultures obtained, positive for gram + cocci in clusters (3) DVT prophylaxis Current Visit: Yes Status: Acute Base Code: [id number] - Comment: 01/17/2018: patient at moderate risk due to age, illness, and decreased mobility -Lovenox 40mg SQ. Will discontinue at disharge as patient to resume normal activity (4) Full code status Current Visit: Yes Status: Acute Base Code: Z78.9 - OTHER SPECIFIED HEALTH STATUS Comment: 01/17/2018: Patient is a full code status - Hospitalization Course Disposition: Home, Self-Care Hospital Course: 67 year old female presented to ED for intermittent fevers over 3 days, a nonproductive cough, loose stools, shaking, decreased urine output, nausea and increased fatigue. Patient denied abdominal pain or urinary symptoms. Patient reports treating her fever with tylenol at home. Patient has a significant past medical history including cardiovascular disease , HTN, fibromyalgia, lower lumbar disc degeneration, rheumatoid arthritis, diabetes, carotid endartorectomy, TIA, gout, GERD, incontinence, CKD stage 3, depression, anxiety, and chronic anemia. ER Course: VS: temp 103.1, HR 105, RR 32, BP 154/64, pulse ox 96% RA Labs: WBC 15.6, CO2 19, BUN 25, CR 1.3, lactic acid 1.7, blood cultures drawn Stool cultures: all results negative, including c-diff Chest x-ray: LLL pneumonia Started rocephin and zithromax. Tylenol prn fever, duoneb prn. Received 2L NS bolus, NS started at 125ml/hr PCP: Leyda Seating [employer] Thoracic Neurosurgeon 01/13/2018: Patient alert & oriented x 4. Patient sitting on edge of bed eating breakfast. Patient continues to have visible shaking of her hands. Patient has had intermittent fevers recorded over the past 24 hours, WBC decreased to 9.1 today, down from 15.6. Hgb 9.1 (previously 11.3, has seen GI for chronic anemia), lactic acid 2.0, up from 1.7 in ED. Blood culture results show no growth. Will continue Zithromax and rocephin, tylenol prn fever, and duoneb prn. Fluids d/c due to CKD, tolerating PO diet well. 01/17/18: Patient alert & oriented x 4. Patient sitting on edge of bed, no acute distress, at bedside. Patient remains on room air at this time, mild dyspnea with exertion. Patient has received IV Vanco and Rocephin, due to positive blood cultures and treatment failure with rocephin and azithromycin. Patient has underlying asthma, showed clinical improvement with solumedrol, will do prednisone taper. Patient was hypokalemic today, at 3.1, replaced with oral potassium. Hypokalemia likely due to patient not taking her home med of triamterene/HCTZ due to it not being available at [facility]. Patient to resume home meds upon discharge. Will discharge with Cefdinir BID x 5 days and to follow- up with PCP as scheduled 01/24. Patient will be sent home with home nebulizer as well prn wheezing/SOB. Procedures: Imaging and X-Rays 01/12/18 10:15 CHEST 2 VIEWS [RAD] Stat 01/14/18 10:57 CHEST 2 VIEWS [RAD] Stat Abnormal Labs: Abnormal Lab Results 01/12/18 01/12/18 01/12/18 Range/Units 10:30 10:30 13:30 WBC 15.6 H (4.2-12.2) K/uL RBC 3.64 L (3.80-5.40) M/uL Hgb 10.5 L (11.6-16.0) gm/dl Hct 32.2 L (35.0-47.0) % MCHC (32-36) g/dl RDW (11.5-14.5) % MPV 11.4 H (7.4-10.4) fl Neutrophils % (47-80) % Band Neutrophils % (0-5) % Lymphocytes % 13.9 L (16-45) % Monocytes % 9.3 H (0-9) % Lymphocytes (16-45) % Sodium 134 L (136-145) mmol/L Potassium (3.4-4.5) mmol/L Chloride 90 L (98-107) mmol/L Carbon Dioxide 19.0 L (22-29) mmol/L Anion Gap 25.0 H (7-16) BUN 25 H (8-23) mg/dL Creatinine 1.3 H (0.5-0.9) mg/dL POC Glucose 177 H (70-110) mg/dL Random Glucose 156 H (74-109) mg/dL Calcium (8.8-10.2) mg/dL NT-Pro-B Natriuret Pep (<125) pg/mL Albumin/Globulin Ratio 1.0 L (1.1-1.8) Urine Protein (NEGATIVE) Urine Urobilinogen (0.20 - 1.00) E.U./dL Vancomycin Trough (5.0-10.0) ug/mL 01/12/18 01/13/18 01/13/18 Range/Units 21:30 04:00 06:24 WBC (4.2-12.2) K/uL RBC 3.15 L (3.80-5.40) M/uL Hgb 9.1 L (11.6-16.0) gm/dl Hct 28.5 L (35.0-47.0) % MCHC 31.9 L (32-36) g/dl RDW 14.6 H (11.5-14.5) % MPV 11.3 H (7.4-10.4) fl Neutrophils % (47-80) % Band Neutrophils % (0-5) % Lymphocytes % 11.2 L (16-45) % Monocytes % (0-9) % Lymphocytes (16-45) % Sodium (136-145) mmol/L Potassium (3.4-4.5) mmol/L Chloride (98-107) mmol/L Carbon Dioxide (22-29) mmol/L Anion Gap (7-16) BUN (8-23) mg/dL Creatinine (0.5-0.9) mg/dL POC Glucose 219 H (70-110) mg/dL Random Glucose (74-109) mg/dL Calcium (8.8-10.2) mg/dL NT-Pro-B Natriuret Pep (<125) pg/mL Albumin/Globulin Ratio (1.1-1.8) Urine Protein 30 mg/dl H (NEGATIVE) Urine Urobilinogen 2.0 H (0.20 - 1.00) E.U./dL Vancomycin Trough (5.0-10.0) ug/mL 01/13/18 01/13/18 01/13/18 Range/Units 06:24 08:00 11:30 WBC (4.2-12.2) K/uL RBC (3.80-5.40) M/uL Hgb (11.6-16.0) gm/dl Hct (35.0-47.0) % MCHC (32-36) g/dl RDW (11.5-14.5) % MPV (7.4-10.4) fl Neutrophils % (47-80) % Band Neutrophils % (0-5) % Lymphocytes % (16-45) % Monocytes % (0-9) % Lymphocytes (16-45) % Sodium (136-145) mmol/L Potassium (3.4-4.5) mmol/L Chloride (98-107) mmol/L Carbon Dioxide 19.0 L (22-29) mmol/L Anion Gap 18.0 H (7-16) BUN (8-23) mg/dL Creatinine (0.5-0.9) mg/dL POC Glucose 176 H 192 H (70-110) mg/dL Random Glucose 172 H (74-109) mg/dL Calcium 7.7 L (8.8-10.2) mg/dL NT-Pro-B Natriuret Pep (<125) pg/mL Albumin/Globulin Ratio (1.1-1.8) Urine Protein (NEGATIVE) Urine Urobilinogen (0.20 - 1.00) E.U./dL Vancomycin Trough (5.0-10.0) ug/mL 01/13/18 01/13/18 01/14/18 Range/Units 17:00 22:21 06:08 WBC (4.2-12.2) K/uL RBC (3.80-5.40) M/uL Hgb (11.6-16.0) gm/dl Hct (35.0-47.0) % MCHC (32-36) g/dl RDW (11.5-14.5) % MPV (7.4-10.4) fl Neutrophils % (47-80) % Band Neutrophils % (0-5) % Lymphocytes % (16-45) % Monocytes % (0-9) % Lymphocytes (16-45) % Sodium (136-145) mmol/L Potassium (3.4-4.5) mmol/L Chloride (98-107) mmol/L Carbon Dioxide (22-29) mmol/L Anion Gap (7-16) BUN (8-23) mg/dL Creatinine (0.5-0.9) mg/dL POC Glucose 247 H 223 H (70-110) mg/dL Random Glucose (74-109) mg/dL Calcium (8.8-10.2) mg/dL NT-Pro-B Natriuret Pep 709.80 H (<125) pg/mL Albumin/Globulin Ratio (1.1-1.8) Urine Protein (NEGATIVE) Urine Urobilinogen (0.20 - 1.00) E.U./dL Vancomycin Trough (5.0-10.0) ug/mL 01/14/18 01/14/18 01/14/18 Range/Units 06:43 06:43 07:30 WBC (4.2-12.2) K/uL RBC 3.11 L (3.80-5.40) M/uL Hgb 8.7 L (11.6-16.0) gm/dl Hct 27.8 L (35.0-47.0) % MCHC 31.3 L (32-36) g/dl RDW 14.9 H (11.5-14.5) % MPV 11.4 H (7.4-10.4) fl Neutrophils % (47-80) % Band Neutrophils % (0-5) % Lymphocytes % 13.7 L (16-45) % Monocytes % (0-9) % Lymphocytes (16-45) % Sodium 134 L (136-145) mmol/L Potassium (3.4-4.5) mmol/L Chloride 93 L (98-107) mmol/L Carbon Dioxide 19.0 L (22-29) mmol/L Anion Gap 22.0 H (7-16) BUN 25 H (8-23) mg/dL Creatinine (0.5-0.9) mg/dL POC Glucose 126 H (70-110) mg/dL Random Glucose 121 H (74-109) mg/dL Calcium 7.4 L (8.8-10.2) mg/dL NT-Pro-B Natriuret Pep (<125) pg/mL Albumin/Globulin Ratio (1.1-1.8) Urine Protein (NEGATIVE) Urine Urobilinogen (0.20 - 1.00) E.U./dL Vancomycin Trough (5.0-10.0) ug/mL 01/14/18 01/14/18 01/14/18 Range/Units 11:30 17:00 22:10 WBC (4.2-12.2) K/uL RBC (3.80-5.40) M/uL Hgb (11.6-16.0) gm/dl Hct (35.0-47.0) % MCHC (32-36) g/dl RDW (11.5-14.5) % MPV (7.4-10.4) fl Neutrophils % (47-80) % Band Neutrophils % (0-5) % Lymphocytes % (16-45) % Monocytes % (0-9) % Lymphocytes (16-45) % Sodium (136-145) mmol/L Potassium (3.4-4.5) mmol/L Chloride (98-107) mmol/L Carbon Dioxide (22-29) mmol/L Anion Gap (7-16) BUN (8-23) mg/dL Creatinine (0.5-0.9) mg/dL POC Glucose 151 H 246 H 262 H (70-110) mg/dL Random Glucose (74-109) mg/dL Calcium (8.8-10.2) mg/dL NT-Pro-B Natriuret Pep (<125) pg/mL Albumin/Globulin Ratio (1.1-1.8) Urine Protein (NEGATIVE) Urine Urobilinogen (0.20 - 1.00) E.U./dL Vancomycin Trough (5.0-10.0) ug/mL 01/15/18 01/15/18 01/15/18 Range/Units 06:10 06:10 07:57 WBC (4.2-12.2) K/uL RBC 3.34 L (3.80-5.40) M/uL Hgb 9.5 L (11.6-16.0) gm/dl Hct 29.3 L (35.0-47.0) % MCHC (32-36) g/dl RDW (11.5-14.5) % MPV 11.9 H (7.4-10.4) fl Neutrophils % 81.0 H (47-80) % Band Neutrophils % (0-5) % Lymphocytes % 7.6 L (16-45) % Monocytes % (0-9) % Lymphocytes 13.0 L (16-45) % Sodium 130 L (136-145) mmol/L Potassium (3.4-4.5) mmol/L Chloride 94 L (98-107) mmol/L Carbon Dioxide 18.0 L (22-29) mmol/L Anion Gap 18.0 H (7-16) BUN 25 H (8-23) mg/dL Creatinine (0.5-0.9) mg/dL POC Glucose 297 H (70-110) mg/dL Random Glucose 309 H (74-109) mg/dL Calcium 8.2 L (8.8-10.2) mg/dL NT-Pro-B Natriuret Pep (<125) pg/mL Albumin/Globulin Ratio (1.1-1.8) Urine Protein (NEGATIVE) Urine Urobilinogen (0.20 - 1.00) E.U./dL Vancomycin Trough (5.0-10.0) ug/mL 01/15/18 01/15/18 01/15/18 Range/Units 11:48 17:04 22:20 WBC (4.2-12.2) K/uL RBC (3.80-5.40) M/uL Hgb (11.6-16.0) gm/dl Hct (35.0-47.0) % MCHC (32-36) g/dl RDW (11.5-14.5) % MPV (7.4-10.4) fl Neutrophils % (47-80) % Band Neutrophils % (0-5) % Lymphocytes % (16-45) % Monocytes % (0-9) % Lymphocytes (16-45) % Sodium (136-145) mmol/L Potassium (3.4-4.5) mmol/L Chloride (98-107) mmol/L Carbon Dioxide (22-29) mmol/L Anion Gap (7-16) BUN (8-23) mg/dL Creatinine (0.5-0.9) mg/dL POC Glucose 333 H 206 H 185 H (70-110) mg/dL Random Glucose (74-109) mg/dL Calcium (8.8-10.2) mg/dL NT-Pro-B Natriuret Pep (<125) pg/mL Albumin/Globulin Ratio (1.1-1.8) Urine Protein (NEGATIVE) Urine Urobilinogen (0.20 - 1.00) E.U./dL Vancomycin Trough (5.0-10.0) ug/mL 01/16/18 01/16/18 01/16/18 Range/Units 06:10 06:10 07:30 WBC (4.2-12.2) K/uL RBC 3.02 L (3.80-5.40) M/uL Hgb 8.6 L (11.6-16.0) gm/dl Hct 26.9 L (35.0-47.0) % MCHC (32-36) g/dl RDW (11.5-14.5) % MPV 11.1 H (7.4-10.4) fl Neutrophils % (47-80) % Band Neutrophils % 11.0 H (0-5) % Lymphocytes % (16-45) % Monocytes % (0-9) % Lymphocytes 8.0 L (16-45) % Sodium (136-145) mmol/L Potassium (3.4-4.5) mmol/L Chloride (98-107) mmol/L Carbon Dioxide (22-29) mmol/L Anion Gap (7-16) BUN 30 H (8-23) mg/dL Creatinine (0.5-0.9) mg/dL POC Glucose 210 H (70-110) mg/dL Random Glucose 214 H (74-109) mg/dL Calcium (8.8-10.2) mg/dL NT-Pro-B Natriuret Pep (<125) pg/mL Albumin/Globulin Ratio (1.1-1.8) Urine Protein (NEGATIVE) Urine Urobilinogen (0.20 - 1.00) E.U./dL Vancomycin Trough (5.0-10.0) ug/mL 01/16/18 01/16/18 01/16/18 Range/Units 11:30 12:20 17:00 WBC (4.2-12.2) K/uL RBC (3.80-5.40) M/uL Hgb (11.6-16.0) gm/dl Hct (35.0-47.0) % MCHC (32-36) g/dl RDW (11.5-14.5) % MPV (7.4-10.4) fl Neutrophils % (47-80) % Band Neutrophils % (0-5) % Lymphocytes % (16-45) % Monocytes % (0-9) % Lymphocytes (16-45) % Sodium (136-145) mmol/L Potassium (3.4-4.5) mmol/L Chloride (98-107) mmol/L Carbon Dioxide (22-29) mmol/L Anion Gap (7-16) BUN (8-23) mg/dL Creatinine (0.5-0.9) mg/dL POC Glucose 245 H 306 H (70-110) mg/dL Random Glucose (74-109) mg/dL Calcium (8.8-10.2) mg/dL NT-Pro-B Natriuret Pep (<125) pg/mL Albumin/Globulin Ratio (1.1-1.8) Urine Protein (NEGATIVE) Urine Urobilinogen (0.20 - 1.00) E.U./dL Vancomycin Trough 12.2 H (5.0-10.0) ug/mL 01/16/18 01/17/18 01/17/18 Range/Units 22:03 06:28 06:28 WBC 13.8 H (4.2-12.2) K/uL RBC 3.17 L (3.80-5.40) M/uL Hgb 9.0 L (11.6-16.0) gm/dl Hct 28.4 L (35.0-47.0) % MCHC 31.7 L (32-36) g/dl RDW 14.7 H (11.5-14.5) % MPV 11.1 H (7.4-10.4) fl Neutrophils % (47-80) % Band Neutrophils % (0-5) % Lymphocytes % (16-45) % Monocytes % (0-9) % Lymphocytes (16-45) % Sodium (136-145) mmol/L Potassium 3.1 L (3.4-4.5) mmol/L Chloride (98-107) mmol/L Carbon Dioxide (22-29) mmol/L Anion Gap (7-16) BUN (8-23) mg/dL Creatinine (0.5-0.9) mg/dL POC Glucose 218 H (70-110) mg/dL Random Glucose 137 H (74-109) mg/dL Calcium (8.8-10.2) mg/dL NT-Pro-B Natriuret Pep (<125) pg/mL Albumin/Globulin Ratio (1.1-1.8) Urine Protein (NEGATIVE) Urine Urobilinogen (0.20 - 1.00) E.U./dL Vancomycin Trough (5.0-10.0) ug/mL Condition at Discharge: (2) Stable VTE Discharge VTE Reason For No Overlap Therapy: Not Indicated Discharge Medications - Discharge Medications Prescriptions: Cefdinir [Omnicef] 300 mg PO BID #10 cap Ipratropium/Albuterol [Duoneb] 3 ml INH RESP.Q4H.WA PRN #30 ampul.neb PRN Reason: Wheezing Lidocaine Patch [Lidoderm] 1 each TOP DAILY PRN #20 patch PRN Reason: back pain Prednisone 10 mg PO ASDIR #1 tab.ds.pk Home Medications: Ambulatory Orders Amitriptyline HCl 50 mg PO QHS 05/14/15 [Last Taken 01/11/18] Atenolol [Tenormin] 50 mg PO DAILY 05/14/15 [Last Taken 01/11/18] Glyburide 5 mg PO BID 05/14/15 [Last Taken 01/11/18 22:00] Hydrocodone/Acetaminophen [Breaks 7.5mg/325mg] 1 tab PO Q6H PRN 05/14/15 [Last Taken 01/11/18] Lovastatin 20 mg PO DAILY 05/14/15 [Last Taken 01/11/18] Ranitidine HCl [Zantac] 300 mg PO QHS 05/14/15 [Last Taken 01/11/18] Ciclopirox/Urea/Camph/Men/Euc [Ciclopirox 8% Treatment Kit] 34.6 ml TP ASDIR [Last Taken 01/11/18] Citalopram Hydrobromide [Celexa] 20 mg PO DAILY tab 11/26/16 [Last Taken ] Clopidogrel Bisulfate [Plavix] 75 mg PO DAILY tab 07/09/17 [Last Taken 01/11/18 ] Allopurinol 100 mg PO BID 01/13/18 [Last Taken Unknown] Losartan Potassium 25 mg PO DAILY 01/13/18 [Last Taken Unknown] Tizanidine HCl 2 mg PO BID 01/13/18 [Last Taken Unknown] Triamterene/Hydrochlorothiazid [Triamterene-Hctz 37.5-25 mg Tb] 0.5 tab PO DAILY 01/13/18 [Last Taken Unknown] Cefdinir [Omnicef] 300 mg PO BID #10 cap 01/17/18 [Last Taken Unknown] Ipratropium/Albuterol [Duoneb] 3 ml INH RESP.Q4H.WA PRN #30 ampul.neb 01/17/18 [ Last Taken Unknown] Lidocaine Patch [Lidoderm] 1 each TOP DAILY PRN #20 patch 01/17/18 [Last Taken Unknown] Prednisone 10 mg PO ASDIR #1 tab.ds.pk 01/17/18 [Last Taken Unknown] Discharge Plan - Discharge Instructions Activity at Discharge: Increase Activity as Tolerated Diet at Discharge: Regular Diet Additional Instructions: Take CEFDINIR (antibiotic) twice a day Take the PREDNISONE (steroids) as directed. You blood sugars may continue to run high for about a week after stopping the steroids. Use the DUONEB treatment in your nebulizer every 4 hours as needed for shortness of breath/wheezing Follow-up with your PCP as scheduled 01/24/18. Quality Measures - Quality Measures Quality Measures: Advance Directives, Documentation of Current Medications in Medical Record, Elder Maltreatment Screen and Follow-Up Plan, Screening for High Blood Pressure and F/U Documented - Current Medications Quality Measure: Measure #130: Documentation of Current Medications Documentation of Current Medications: <Current Medications Documented/Reviewed> [G8427] - Blood Pressure Screening Quality Measure: Screening for High Blood Pressure and Follow-Up Documented Does Patient Have Any of the Following: Active Dx of HTN Blood Pressure Classification: Normal BP Reading Systolic Measurement: 105 Diastolic Measurement: 41 Screening for High Blood Pressure: Patient Exclusion, Hx of HTN [G9744] - Advance Directives Quality Measure: Measure #47: Care Plan Advance Directives Established: No Advance Directives Information Provided To Patient: No Advance Directives on File: No Living Will: No Power of Pack Out Operator: No Advance Care Planning: Not Discussed or Documented [[id number]] - Elder Abuse Suspicion Index Screening: Elder Abuse Suspicion Index Screening Rely on people for bathing, dressing, shopping, banking, etc: No Prevented from getting food, clothes, medication, etc: No Made to feel shamed or threatened by someone: No Forced to sign papers or use money against will: No Feel afraid, touched in ways not wanted or hurt physically: No Poor eye contact, withdrawn, malnourished, cuts or bruises: No Screening Result: Negative result EASI Reference Information: Aileen HERNANDEZ, Efrain Welch, Sohan Cox, Rita Swanson.Development and validation of a tool to assist physicians identification of elder abuse: The Elder Abuse Suspicion Index (EASI ). Journal of Elder Abuse and Neglect, 2008; 20 (3): 276-300. - Elder Maltreatment Screen Quality Measures: Elder Maltreatment Screen and Follow-Up Plan Elder Maltreatment Screen: <Negative, No Follow-Up Plan Required> [G8191]
== END 2018-01-17 11:00 | disposition home or self-care (01) | DRG 195 ==
LOC: ER 09:40 → MEDSURG 13:04
PROVIDERS: ADMIT Internal Medicine; ATTEND Internal Medicine
DX: J18.9 Pneumonia, unspecified organism (principal); R19.7 Diarrhea, unspecified; R50.9 Fever, unspecified; I10 Essential (primary) hypertension; E11.9 Type 2 diabetes mellitus without complications; D64.9 Anemia, unspecified; M19.90 Unspecified osteoarthritis, unspecified site; M79.7 Fibromyalgia; Z95.5 Presence of coronary angioplasty implant and graft; Z86.73 Personal history of transient ischemic attack (TIA), and cerebral infarction without residual deficits; Z87.891 Personal history of nicotine dependence
CPT/HCPCS: 36416; 71046; 80048; 80053; 80202; 81003; 82948; 83605; 83880; 84145; 85025; 85027; 87329; 87427; 87493; 89055; 94761; 96365; 99223; 99233; 99239; 99285; J0456; J0696; J1650; J1940; J2930; J7030; J7050; J7060; J7613

== ENCOUNTER 2018-07-07 13:40 | Emergency (ER) | payer MEDICARE, MEDICAID ==
--- NOTE | 2018-07-07 14:05 | Emergency Department Record ---
History of Present Illness - General Chief Complaint: Chest Pain Stated Complaint: CHEST DISCOMFORT Time Seen by Provider: 07/07/18 14:02 Source: Patient Mode of Arrival: Ambulatory Limitations: No limitations - History of Present Illness Initial Comments: The patient is here due to having episodes of chest squeezing yesterday and today. Both episodes occurred when the patient was making the bed this AM and yesterday AM. The episodes were described as retrosternal chest squeezing without radiation. There was no associated SOB, BALAJI, sweating or nausea. Both episodes resolved in 3 minutes with rest. The patient additionally had palpitations during the night 3 times that woke her up. She denies any hx of cardiac issues and did have a cardiac echo this last summer that was reportedly to be normal. MD Complaint: Chest pain Onset/Timin -: Days(s) Onset: During exertion Pain Location: Substernal Quality: Tightness Consistency: Intermittent Improves With: Nothing Worsens With: Nothing Treatments Prior to Arrival: None - Related Data Previous Rx's Medication Instructions Recorded Ipratropium/Albuterol [Duoneb] 3 ml INH RESP.Q4H.WA PRN #30 01/17/18 ampul.neb Prednisone 10 mg PO ASDIR #1 tab.ds.pk 01/17/18 Allergies Allergy/AdvReac Type Severity Reaction Status Date / Time erythromycin base Allergy Severe RASH Verified 07/07/18 13:46 codeine Allergy Intermediate ALTERED Verified 07/07/18 13:46 MENTAL STATUS levofloxacin [From Levaquin] Allergy Intermediate VOMITING Verified 07/07/18 13: 46 Sulfa (Sulfonamide Allergy Intermediate RASH Verified 07/07/18 13:46 Antibiotics) Travel Screening - Travel/Exposure Within Last 30 Days Have you traveled within the last 30 days?: No - Travel/Exposure Within Last Year Have you traveled outside the [place] in the last year?: No - Additonal Travel Details Have you been exposed to anyone with a communicable illness?: No - Travel Symptoms Symptom Screening: None Review of Systems Constitutional: Denies: Chills, Fever Eyes: Denies: Eye discharge ENT: Denies: Congestion Respiratory: Denies: Cough, Dyspnea Cardiovascular: Reports: Chest pain. Denies: Arrhythmia, Dyspnea on exertion Endocrine: Denies: Fatigue Gastrointestinal: Denies: Diarrhea, Vomiting Genitourinary: Denies: Dysuria Musculoskeletal: Denies: Arthralgia Skin: Denies: Bruising Past Medical History - SOCIAL HISTORY Smoking Status: Former smoker Alcohol Use: None Drug Use: None - RESPIRATORY Hx Respiratory Disorders: Yes Hx of CPAP: Yes - CARDIOVASCULAR Hx Cardio Disorders: Yes Hx Hypertension: Yes Comment:: high cholesterol/ carotid artery - NEURO Hx Neuro Disorders: Yes Hx TIA: Yes - GI Hx GI Disorders: Yes Hx Reflux: Yes - Hx Genitourinary Disorders: Yes Hx Bladder Problem: Yes (previous incontinence) Comment:: Stage 3 Kidney dx - ENDOCRINE Hx Endocrine Disorders: Yes Hx Diabetes: Yes Hx Thyroid Disease: No - MUSCULOSKELETAL Hx Musculoskeletal Disorders: Yes Hx Arthritis: Yes (spine. R knee/gout) Hx Fibromyalgia: Yes Hx Gout: Yes Comment:: 3 herniated discs in neck - PSYCH Hx Psych Problems: Yes Hx Anxiety: Yes Hx Depression: Yes - HEMATOLOGY/ONCOLOGY Hx Hematology/Oncology Disorders: Yes Hx Anemia: Yes Family Medical History Any Significant Family History?: Yes Family Hx Comment (NOT TO BE USED IN PLACE OF ITEMS BELOW): Father w/ cerebral hemorrhage-; siblings w/ carotid problems Hx Cancer: Grandparents Hx Diabetes: Brother/Sister Hx Heart Disease: Mother, Brother/Sister Hx HTN: Father, Mother Hx Seizures: Brother/Sister Hx Stroke: Father Physical Exam - General General Appearance: Alert, Oriented x3, Cooperative, No acute distress - Head Head exam: Atraumatic, Normocephalic, Normal inspection - Eye Eye exam: Normal appearance, PERRL, EOMI - ENT Throat exam: Normal inspection. negative: Tonsillar erythema, Tonsillar exudate - Neck Neck exam: Normal inspection, Full ROM. negative: Tenderness - Respiratory Respiratory exam: Normal lung sounds bilaterally. negative: Respiratory distress - Cardiovascular Cardiovascular Exam: Regular rate, Normal rhythm, Normal heart sounds. negative : Diastolic murmur, Systolic murmur - GI/Abdominal GI/Abdominal exam: Soft, Normal bowel sounds. negative: Tenderness - Extremities Extremities exam: Normal inspection, Full ROM, Normal capillary refill. negative: Tenderness - Neurological Neurological exam: Alert, Normal gait. negative: Abnormal gait, Motor sensory deficit - Psychiatric Psychiatric exam: negative: Anxious Course Vital Signs 07/07/18 13:50 Temperature 98.7 F Pulse Rate 104 H Respiratory 20 Rate Blood Pressure 125/81 Pulse Ox 100 - Reevaluation(s) Reevaluation #1: The patient is doing very well at this time. She denies any pain or discomfort. I did explain to her that her lab test do not demonstrate any abnormality with her heart but due to her age and symptoms I did recommend hospital admission. The patient states she would like to go home. Presently she does have proper decision making capacity. I did discus the risks of leaving which include going home and having a heart attack, heart failure, stroke, disability and . The patient understands and accepts the risks and would like to leave AMA. I did discuss the need to return at any time if any of her symptoms return and to see her PCP CLAUDIA. 07/07/18 15:06 Medical Decision Making - Data Complexity MDM Data: Labs Ordered and/or Reviewed, X-Ray Ordered and/or Reviewed, EKG Ordered and/or Reviewed - Lab Data Result diagrams: 07/07/18 14:00 07/07/18 14:00 - EKG Data -: EKG Interpreted by Me (Sinus tach at 106. Nonspecific lateral ST-T changes.) - Radiology Data Radiology results: Report reviewed (CXR: Neg.) Disposition Disposition: Discharge Clinical Impression: Palpitations Disposition: Against Medical Advice Condition: (2) Stable Instructions: Chest Pain (ED) Additional Instructions: Please continue your regular medicines and please see your family doctor CLAUDIA and bring your lab results with you. Return to the ER for any return of the symptoms or for any new pain or discomfort. Forms: Patient Portal Access Time of Disposition: 15:10 Quality - Quality Measures Quality Measures: N/A - Blood Pressure Screening View Details: Yes Does Patient Have Any of the Following: No Blood Pressure Classification: Pre-Hypertensive BP Reading Systolic Measurement: 125 Diastolic Measurement: 81 Screening for High Blood Pressure: < Pre-Hypertensive BP, F/U Documented > [ [id number]] Pre-Hypertensive Follow-up Interventions: Referral to alternative/primary care provider.
[2018-07-07] MEDS ORDERED: ASPIRIN 325 MG TABLET PO ONE (14:08)
[2018-07-07 14:19] LABS: BASO % 0.2 % (0-6); EOS % 1.4 % (0-6); HEMATOCRIT 35.2 % (35.0-47.0); HEMOGLOBIN 11.6 gm/dl (11.6-16.0); LYMPH % 26.9 % (16-45); MEAN CELL VOLUME 90.7 fl (81-97); MEAN CORPUSCULAR HEMOGLOBIN 29.9 pg (27-33); MEAN PLATELET VOLUME 11.2 fl (7.4-10.4); MONO % 4.5 % (0-9); PLATELET COUNT 267 K/uL (130-400); RED BLOOD COUNT 3.88 M/uL (3.80-5.40); RED CELL DISTRIBUTION WIDTH 14.2 % (11.5-14.5); WHITE BLOOD COUNT W/O DIFF 8.5 K/uL (4.2-12.2)
[2018-07-07 14:32] LABS: BLOOD UREA NITROGEN 19 mg/dL (8-23)
[2018-07-07 14:33] LABS: CREATININE 1.1 mg/dL (0.5-0.9); EST GLOMERULAR FILTRATION RATE 52 mL/min; TOTAL PROTEIN 8.1 g/dL (6.6-8.7)
[2018-07-07 14:35] LABS: GLUCOSE,RANDOM 270 mg/dL (74-109)
[2018-07-07 14:36] LABS: PARTIAL THROMBOPLASTIN TIME 27.9 SECONDS (24.5-39.1); PROTHROMBIN TIME (PATIENT) 10.1 SECONDS (9.5-12.1)
[2018-07-07 14:38] LABS: ALB/GLOB RATIO 1.4 (1.1-1.8); ALBUMIN 4.7 g/dL (4.0-5.0); ALKALINE PHOSPHATASE 87 U/L (35-104); ALT/SGPT 35 U/L (<33); AST/SGOT 39 U/L (10.0-35.0); CREATINE PHOSPHOKINASE 73 U/L (26-192)
[2018-07-07 14:40] LABS: CKMB 3.1 ng/mL (<3.77)
[2018-07-07 14:50] LABS: THYROID STIMULATING HORMONE 3.74 uIU/mL (0.270-4.20)
--- NOTE | 2018-07-08 08:15 | RADIOLOGY REPORT ---
DATE: 07/07/2018. EXAM: TWO-VIEW CHEST. HISTORY: DIFFICULTY IN BREATHING. TECHNIQUE: Frontal and lateral views of the chest were performed. COMPARISON: 01/14/2018. FINDINGS: Heart size is normal. No pulmonary vascular congestion. No infiltrate or pleural effusion. The osseous structures are normal. IMPRESSION: NO ACUTE DISEASE PROCESS. JOB NUMBER: [id number] MTDD
== END 2018-07-07 15:34 | disposition left against medical advice (07) ==
LOC: ER 13:40
DX: R00.2 Palpitations (principal); R06.00 Dyspnea, unspecified; E11.9 Type 2 diabetes mellitus without complications; N28.9 Disorder of kidney and ureter, unspecified; I10 Essential (primary) hypertension; Z87.891 Personal history of nicotine dependence
CPT/HCPCS: 71046; 80053; 82550; 82553; 84443; 84484; 85025; 85610; 85730; 93005; 93010; 99284

== ENCOUNTER 2018-12-11 16:22 | Emergency (ER) | payer MEDICARE, MEDICAID ==
--- NOTE | 2018-12-11 16:53 | Emergency Department Record ---
History of Present Illness - General Chief complaint: Rash Stated complaint: PAIN/RASH LT SIDE NECK Time Seen by Provider: 12/11/18 16:39 Source: Patient Mode of Arrival: Ambulatory Limitations: No limitations - History of Present Illness Initial comments: pt has pain on l side of neck and trapezius area and then broke out in a blistered rash. complaint: Rash Onset/Timin -: Days(s) Location: Neck Severity: Mild Severity scale (1-10): 10 Quality: Aching, Dull Consistency: Constant Improves with: None Worsens with: None Context: None Associated symptoms: Itching Treatments Prior to Arrival: Other - Related Data Home Medications Medication Instructions Recorded Confirmed Last Taken Fenofibrate Nanocrystallized 145 mg PO DAILY 12/11/18 12/11/18 Unknown [Fenofibrate] Previous Rx's Medication Instructions Recorded Ipratropium/Albuterol [Duoneb] 3 ml INH RESP.Q4H.WA PRN #30 01/17/18 ampul.neb Famciclovir 500 mg PO Q8HR #21 tablet 12/11/18 Hydrocodone/Acetaminophen [Morris 1 tab PO Q6H PRN #12 tab 12/11/18 10mg/325mg] Prednisone [Prednisone 10Mg] 10 mg PO ASDIR #30 tab 12/11/18 Allergies Allergy/AdvReac Type Severity Reaction Status Date / Time erythromycin base Allergy Severe RASH Verified 07/07/18 13:46 codeine Allergy Intermediate ALTERED Verified 07/07/18 13:46 MENTAL STATUS levofloxacin [From Levaquin] Allergy Intermediate VOMITING Verified 07/07/18 13:46 Sulfa (Sulfonamide Allergy Intermediate RASH Verified 07/07/18 13:46 Antibiotics) Travel Screening - Travel/Exposure Within Last 30 Days Have you traveled within the last 30 days?: No Review of Systems Reviewed: No additional complaints except as noted below Constitutional: Reports: As per HPI. Denies: Chills, Fever, Malaise, Night sweats, Weakness, Weight change Eyes: Reports: As per HPI. Denies: Eye discharge, Eye pain, Photophobia, Vision change ENT: Reports: As per HPI. Denies: Congestion, Dental pain, Ear pain, Epistaxis, Hearing loss, Throat pain Respiratory: Reports: As per HPI. Denies: Cough, Dyspnea, Hemoptysis, Stridor, Wheezes Cardiovascular: Reports: As per HPI. Denies: Arrhythmia, Chest pain, Dyspnea on exertion, Edema, Murmurs, Orthopnea, Palpitations, Paroxysmal nocturnal dyspnea, Rheumatic Fever, Syncope Endocrine: Reports: As per HPI. Denies: Fatigue, Heat or cold intolerance, Polydipsia, Polyuria Gastrointestinal: Reports: As per HPI. Denies: Abdominal pain, Constipation, Diarrhea, Hematemesis, Hematochezia, Melena, Nausea, Vomiting Genitourinary: Reports: As per HPI. Denies: Abnormal menses, Discharge, Dyspareunia, Dysuria, Frequency, Hematuria, Incontinence, Retention, Urgency Musculoskeletal: Reports: As per HPI. Denies: Arthralgia, Back pain, Gout, Joint swelling, Myalgia, Neck pain Skin: Reports: As per HPI, Rash. Denies: Bruising, Change in color, Change in hair/nails, Lesions, Pruritus Neurological: Reports: As per HPI. Denies: Abnormal gait, Confusion, Headache, Numbness, Paresthesias, Seizure, Tingling, Tremors, Vertigo, Weakness Psychiatric: Reports: As per HPI. Denies: Anxiety, Auditory hallucinations, Depression, Homicidal thoughts, Suicidal thoughts, Visual hallucinations Hematological/Lymphatic: Reports: As per HPI. Denies: Anemia, Blood Clots, Easy bleeding, Easy bruising, Swollen glands Past Medical History - SOCIAL HISTORY Smoking Status: Former smoker Alcohol Use: None Drug Use: None - RESPIRATORY Hx Respiratory Disorders: Yes Hx of CPAP: Yes - CARDIOVASCULAR Hx Cardio Disorders: Yes Hx Hypertension: Yes Comment:: high cholesterol/ carotid artery - NEURO Hx Neuro Disorders: Yes Hx TIA: Yes - GI Hx GI Disorders: Yes Hx Reflux: Yes - Hx Genitourinary Disorders: Yes Hx Bladder Problem: Yes (previous incontinence) Comment:: Stage 3 Kidney dx - ENDOCRINE Hx Endocrine Disorders: Yes Hx Diabetes: Yes Hx Thyroid Disease: No - MUSCULOSKELETAL Hx Musculoskeletal Disorders: Yes Hx Arthritis: Yes (spine. R knee/gout) Hx Fibromyalgia: Yes Hx Gout: Yes Comment:: 3 herniated discs in neck - PSYCH Hx Psych Problems: Yes Hx Anxiety: Yes Hx Depression: Yes - HEMATOLOGY/ONCOLOGY Hx Hematology/Oncology Disorders: Yes Hx Anemia: Yes Family Medical History Any Significant Family History?: Yes Family Hx Comment (NOT TO BE USED IN PLACE OF ITEMS BELOW): Father w/ cerebral hemorrhage-; siblings w/ carotid problems Hx Cancer: Grandparents Hx Diabetes: Brother/Sister Hx Heart Disease: Mother, Brother/Sister Hx HTN: Father, Mother Hx Seizures: Brother/Sister Hx Stroke: Father Physical Exam - General General Appearance: Alert, Oriented x3, Cooperative, Mild distress - Head Head exam: Normal inspection - Eye Eye exam: Normal appearance, PERRL, EOMI Pupils: Normal accommodation - ENT ENT exam: Normal exam, Mucous membranes moist, Normal external ear exam, Normal orophraynx Ear exam: Normal external inspection. negative: External canal tenderness Nasal Exam: Normal inspection. negative: Discharge, Sinus tenderness Mouth exam: Normal external inspection, Tongue normal Teeth exam: Normal inspection. negative: Dental caries Throat exam: Normal inspection. negative: Tonsillar erythema, Tonsillar exudate - Neck Neck exam: Normal inspection, Full ROM. negative: Tenderness - Respiratory Respiratory exam: Normal lung sounds bilaterally. negative: Respiratory distress - Cardiovascular Cardiovascular Exam: Regular rate, Normal rhythm, Normal heart sounds - GI/Abdominal GI/Abdominal exam: Soft, Normal bowel sounds. negative: Tenderness - Rectal Rectal exam: Deferred - exam: Deferred - Extremities Extremities exam: Normal inspection, Full ROM, Normal capillary refill. negative: Tenderness - Back Back exam: Reports: Normal inspection, Full ROM. Denies: Muscle spasm, Rash noted, Tenderness - Neurological Neurological exam: Alert, CN II-XII intact, Normal gait, Oriented X3 - Psychiatric Psychiatric exam: Normal affect, Normal mood - Skin Skin exam: Dry, Intact, Normal color, Rash, Warm Distribution of rash: Neck Description of rash: Confluent, Vesicular Course Vital Signs 12/11/18 16:27 Temperature 99.1 F Pulse Rate 60 Respiratory 20 Rate Blood Pressure 140/60 Pulse Ox 99 Disposition Disposition: Discharge Clinical Impression: Shingles Qualifiers: Herpes zoster complications: without complications Qualified Code(s): B02.9 - Zoster without complications Disposition: Home, Self-Care Condition: (1) Good Instructions: Shingles (ED) Prescriptions: Famciclovir 500 mg PO Q8HR #21 tablet Hydrocodone/Acetaminophen [Morris 10mg/325mg] 1 tab PO Q6H PRN #12 tab PRN Reason: Pain - General Prednisone [Prednisone 10Mg] 10 mg PO ASDIR #30 tab Quality - Quality Measures Quality Measures: N/A - Blood Pressure Screening Does Patient Have Any of the Following: Active Dx of HTN Blood Pressure Classification: Hypertensive Reading Systolic Measurement: 140 Diastolic Measurement: 60 Screening for High Blood Pressure: Patient Exclusion, Hx of HTN [G9744]
== END 2018-12-11 17:19 | disposition home or self-care (01) ==
LOC: ER 16:22
DX: B02.9 Zoster without complications (principal); M54.2 Cervicalgia; I10 Essential (primary) hypertension; F17.210 Nicotine dependence, cigarettes, uncomplicated
CPT/HCPCS: 99282